=== PATIENT | female | born 1960 | race Caucasian/White ===

== ENCOUNTER 2020-08-24 11:28 | Outpatient (REF) | payer OTHER, SELFPAY ==
[2020-08-24 15:15] LABS: Alanine Aminotransferase 11 U/L (0-31); Albumin Level 4.3 g/dL (3.5-5.0); Alkaline Phosphatase 55 U/L (39-117); Anion Gap 12 (12-20); Aspartate Amino Transferase 16 U/L (5-31); Bilirubin Total 0.7 mg/dL (0.0-1.0); Blood Urea Nitrogen 18 mg/dL (9-16); Calcium 8.9 mg/dL (8.4-10.2); Carbon Dioxide 26 mmol/L (22-29); Chloride 107 mmol/L (96-108); Cholesterol 197 mg/dL; Estimated Glomerular Filt Rate > 60; Glucose Fasting 85 mg/dL (60-99); HDL Cholesterol 70 mg/dL; LDL Cholesterol Calculated 114 mg/dl; Potassium 4.4 mmol/L (3.3-5.1); Sodium 141 mmol/L (135-145); Total Protein 6.9 g/dL (6.5-8.0); Triglycerides 65 mg/dL
[2020-08-24 15:38] LABS: TSH reflex Free T4 2.06 uIU/mL (0.32-4.0); Vitamin D 25-OH Total 27.7 ng/mL (>30)
[2020-08-26 10:07] LABS: SARS COV2 IgG Negative (Negative)
== END 2020-08-24 11:29 | disposition home or self-care (01) ==
LOC: HO.HMGCLDS 11:28
PROVIDERS: PCP Nurse Practitioner Family; Visit Provider Nurse Practitioner Family
DX: Z00.00 Encounter for general adult medical examination without abnormal findings (principal); Z78.0 Asymptomatic menopausal state; Z20.822 Contact with and (suspected) exposure to COVID-19
CPT/HCPCS: 36415; 80053; 80061; 82306; 84443; 86769

== ENCOUNTER 2020-09-15 08:40 | Outpatient (REF) | payer OTHER, SELFPAY ==
--- NOTE | ~2020-09-15 | XR_ITS ---
EXAMINATION: XR BILATERAL HANDS CLINICAL INFORMATION: Bilateral hand pain. COMPARISON: None. TECHNIQUE: 3 views of each hand. FINDINGS: Views of the left hand do not demonstrate any evidence of acute fracture or dislocation. No significant soft tissue swelling is seen. No erosive changes are evident. There is degenerative joint space narrowing and spurring involving the 1st carpal metacarpal joint. Soft tissue calcification is seen about the volar medial aspect of the second proximal phalanx which is well corticated and may be sequela of previous trauma. There is no evidence of acute fracture or dislocation of the right hand. Joint spaces are maintained. No periarticular or para-articular erosive changes noted. There is mild spurring seen about the 1st metacarpophalangeal joint and 5th proximal interphalangeal joint. There is joint space narrowing with spurring and sclerosis about the 1st carpometacarpal joint. Calcific density about the medial aspect base of the 1st metacarpal may represent sequela of previous trauma/avulsion injury. XR/XR hand RT min 3V IMPRESSION: No acute fracture or dislocation of either right or left hands. No evidence of erosive arthropathy. Degenerative changes prominent involving both 1st carpometacarpal joints.
--- NOTE | ~2020-09-15 | XR_ITS ---
EXAMINATION: XR BILATERAL HANDS CLINICAL INFORMATION: Bilateral hand pain. COMPARISON: None. TECHNIQUE: 3 views of each hand. FINDINGS: Views of the left hand do not demonstrate any evidence of acute fracture or dislocation. No significant soft tissue swelling is seen. No erosive changes are evident. There is degenerative joint space narrowing and spurring involving the 1st carpal metacarpal joint. Soft tissue calcification is seen about the volar medial aspect of the second proximal phalanx which is well corticated and may be sequela of previous trauma. There is no evidence of acute fracture or dislocation of the right hand. Joint spaces are maintained. No periarticular or para-articular erosive changes noted. There is mild spurring seen about the 1st metacarpophalangeal joint and 5th proximal interphalangeal joint. There is joint space narrowing with spurring and sclerosis about the 1st carpometacarpal joint. Calcific density about the medial aspect base of the 1st metacarpal may represent sequela of previous trauma/avulsion injury. XR/XR hand LT min 3V IMPRESSION: No acute fracture or dislocation of either right or left hands. No evidence of erosive arthropathy. Degenerative changes prominent involving both 1st carpometacarpal joints.
== END 2020-09-15 08:41 | disposition home or self-care (01) ==
LOC: HO.HMGCX 08:40
PROVIDERS: PCP Nurse Practitioner Family; Visit Provider Nurse Practitioner Family
DX: M79.644 Pain in right finger(s) (principal); M79.645 Pain in left finger(s); M79.642 Pain in left hand; M79.641 Pain in right hand
CPT/HCPCS: 73130

== ENCOUNTER 2020-11-04 10:00 | Outpatient (RCR) | payer OTHER, SELFPAY ==
--- NOTE | 2020-10-06 10:03 | MHC.OT.OEV ---
[address] [phone] F: [phone] Occupational Therapy Evaluation Diagnosis: Bilateral hand pain Date of Onset: 07/12/20 Date of Surgery: Attending Provider: Prescribed Treatment: MD Follow Up Appointment: History of Current Condition: 09/15/20 x-ray B/L CMC arthritis. Significant Medical History: Precautions/Contraindications: Patient Goals: Hand Dominance: Right Observations: QuickDASH Score: 32 Prior Level of Function and Occupation Self Care, Employment, Leisure: Ind w/ daily activities, homemaker, owns a snack business Living Situation, Family and/or Social Support: Assists w/ care of granchildren (2 and 4) 2 days/week Current Level of Function and Occupation Self Care, Employment, Leisure: Pain w/ cutting/using kitchen knives, use of hands/fingers w/ small tasks Sleep: No issues Driving: No issues Vision: Balance: Pain Assessment Pain Score: 5 Pain Scale Used: Numeric (0 - 10) Pain Location and Description: Sharp pain radiating down thumb to base right > left Aggravating Factors: Use of hands w/ small tasks Alleviating Factors: None noted to this point Skin and Soft Tissue Assessment Skin and Soft Tissue: Comments: Nerve assessment Ulnar Nerve: WFL Median Nerve: WFL Radial Nerve: WFL Comments: Sensory Assessment Temperature: WFL Light Touch: WFL Proprioception: WFL Vibration: Comments: Edema Assessment Upper Extremity: Lower Extremity: Comments: Mild edema in both thumb bases Dexterity Assessment Dexterity: WFL Comments: Special Tests Comments: (+) grind test B/L'ly AROM(PROM) Strength Cervical Cervical Flexion: Cervical Extension: Cervical Lateral Flexion: Cervical Rotation: Comments: WFL Shoulder Flexion: Extension: Abduction: Internal Rotation: External Rotation: Comments: WFL Flexion: Extension: Abduction: Internal Rotation: External Rotation: Comments: Elbow Flexion: Extension: Pronation: Supination: Comments: WFL Flexion: Extension: Pronation: Supination: Comments: Wrist Flexion: Extension: Ulnar Deviation: Radial Deviation: Comments: WFL Flexion: Extension: Ulnar Deviation: Radial Deviation: Comments: Thumb Thumb CMC Flexion: Thumb MCP Flexion: Thumb IP Flexion: Radial Abduction: Palmar Abduction: [place] ([place] 0-10): B/L 10 Comments: Digits Index MCP: PIP: DIP: Long MCP: PIP: DIP: Ring MCP: PIP: DIP: Small MCP: PIP: DIP: Comments: 10 Gross Grasp: R 70lb L 75lb Lateral Pinch: R 15lb L 16lb Two-Point Pinch: R 6lb L 7lb Three-Jaw Wing: R 9lb L 11lb Comments: Patient Education Primary Language: [place] Route Service Manager Required: Yes Current Knowledge: Understands information with skills for self-management Teaching Method: Demonstration Handouts Verbal Education Needs Identified on Evaluation: ADL's Disease Information Equipment Use Exercise Pain Safety How did patient/family demonstrate learning? Patient demonstrates Patient verbalizes Barriers to Learning: None Readiness for Learning: Accepting Who was educated? Patient Comments: Plan of Care Assessment: 60 yo female presents w/ history of B/L CMC arthritis, worse during the winter time, but more persistant this year and has not had relief yet. On assessment, she demo's good strength and ROM, but had tenderness to palpate thumb bases w/ (+) grind test. She reports more pain w/ small tasks and object manipulation. She will benefit from brief course of occupational therapy for strengthening to support CMC w/ education on joint protection, activity modification, pain and edema management. STG Duration: 3 weeks Short Term Goals: Ind w/ CMC orthosis wear Pt to report decreased pain in both hands with moderate activities during the day Good follow through w/ activity modification/joint protection Ind w/ HEP LTG Duration: Custodial Goals: Same as above Frequency and Duration: The patient will be seen 2x/wk for 2-3 weeks Treatment Plan: Therapeutic Exercise Therapeutic Activity Home Exercise Program Splinting Patient Education Edema Control ADL Training Ultrasound Paraffin MHP Cold Packs Joint Mobilization Soft Tissue Mobilization Kinesiotaping Electronically Signed By: Yasmin Arrington OTR/L Reviewed/agree with student documentation: N/A Therapist: Please sign and return to therapist, Thank you for your referral.
--- NOTE | 2020-11-04 11:35 | MHC.OT.DC ---
[address] [phone] F: [phone] Occupational Therapy Discharge Note Provider: Manuel Zapien NP Diagnosis: Bilateral hand pain Date of Evaluation: 10/06/20 Date of Discharge: 11/04/20 Treatments to Date: 5 Discharge Status: Independent with HEP Discharge Summary: Aditi was referred to OT w/ persistant hand pain due to degenerative changes at bilateral CMCs, right worse than left. She is still w/ persistent pain despite limiting exercises, mostly pain w/ heavy housecleaning (putting sheets on bed). She wears custom orthosis from OT office at times with some relief, but is waiting shipment on Metagrip Push CMC orthoses. We have discussed joint protection and activity modification to great length and she has good understanding of home program. She would benefit from rheumtology consult to consider other options. Electronically Signed By: Yasmin Arrington, OTR/L Please Sign and return to therapist, thank you for your referral.
== END 2020-11-05 10:52 | disposition other institution (70) ==
LOC: HO.OT 10:00
PROVIDERS: PCP Nurse Practitioner Family; Visit Provider Nurse Practitioner Family
DX: M79.644 Pain in right finger(s) (principal); M79.645 Pain in left finger(s)
CPT/HCPCS: 29130; 97035; 97110; 97140; 97165; 97535; 97760

== ENCOUNTER 2021-08-24 08:51 | Outpatient (REF) | payer OTHER, SELFPAY ==
[2021-08-24 12:18] LABS: Alanine Aminotransferase 15 U/L (0-31); Albumin Level 4.4 g/dL (3.5-5.0); Alkaline Phosphatase 53 U/L (39-117); Anion Gap 14 (12-20); Aspartate Amino Transferase 18 U/L (5-31); Bilirubin Total 0.6 mg/dL (0.0-1.0); Blood Urea Nitrogen 17 mg/dL (9-16); Calcium 9.9 mg/dL (8.4-10.2); Carbon Dioxide 25 mmol/L (22-29); Chloride 105 mmol/L (96-108); Cholesterol 217 mg/dL; Estimated Glomerular Filt Rate > 60; Glucose Fasting 87 mg/dL (60-99); HDL Cholesterol 70 mg/dL; LDL Cholesterol Calculated 135 mg/dl; Potassium 4.4 mmol/L (3.3-5.1); Sodium 140 mmol/L (135-145); Total Protein 7.1 g/dL (6.5-8.0); Triglycerides 64 mg/dL
[2021-08-24 12:23] LABS: TSH reflex Free T4 2.16 uIU/mL (0.32-4.0); Vitamin D 25-OH Total 24.4 ng/mL (>30)
[2021-08-24 14:03] LABS: Appearance Urine HAZY; Color Urine YELLOW; Glucose Urine UA NEG (NEG); Leukocyte Esterase Urine NEG (NEG); Nitrite Urine NEG (NEG); Specific Gravity - Urine 1.025 (1.005-1.025); Urine Blood NEG (NEG); Urine Ketones 5 MG/DL (NEG); Urine Protein NEG (NEG-TRACE)
== END 2021-08-24 08:52 | disposition home or self-care (01) ==
LOC: HO.HMGCLDS 08:51
PROVIDERS: Visit Provider Nurse Practitioner Family
DX: Z00.00 Encounter for general adult medical examination without abnormal findings (principal); Z78.0 Asymptomatic menopausal state
CPT/HCPCS: 36415; 80053; 80061; 81003; 82306; 84443

== ENCOUNTER 2022-04-06 09:09 | Outpatient (REF) | payer OTHER, SELFPAY ==
[2022-04-06 11:12] LABS: MANUAL DIFF FLAG NO
[2022-04-06 11:15] LABS: Eosinophils Absolute Auto 0.1 X10*3/uL (0.0-0.4); Eosinophils Percent Auto 3.4 % (0-4); Hematocrit 40.2 % (37.0-47.0); Hemoglobin 13.5 g/dl (12.0-16.0); Imm Gran Abs Auto 0.01 X10*3/uL (0.00-0.03); Imm Gran Pct Auto 0.3 % (0.0-0.4); Lymphocytes Absolute Auto 0.9 X10*3/uL (1.2-4.9); Lymphocytes Percent Auto 24.4 % (20-40); Mean Corpuscular HGB Conc 33.6 g/dl (31.0-35.0); Mean Corpuscular Hemoglobin 31.5 pg (27.0-33.0); Mean Corpuscular Volume 93.9 fL (80.0-98.0); Mean Platelet Volume 10.4 fL (9.4-12.3); Monocytes Absolute Auto 0.4 X10*3/uL (0.1-1.2); Monocytes Percent Auto 10.5 % (2-11); Neutrophils Absolute Auto 2.3 x10*3/uL (2.0-8.3); Neutrophils Percent Auto 60.4 % (45-73); Platelet Count 279 X10*3/uL (160-400); Red Blood Count 4.28 X10*6/uL (4.20-5.50); Red Cell Distribution Width 14.4 % (11.0-16.0); White Blood Count 3.8 X10*3/uL (4.8-10.8)
[2022-04-06 11:58] LABS: TSH reflex Free T4 1.69 uIU/mL (0.32-4.0)
[2022-04-06 12:00] LABS: Alanine Aminotransferase 21 U/L (0-31); Albumin Level 4.4 g/dL (3.5-5.0); Alkaline Phosphatase 57 U/L (39-117); Anion Gap 15 (12-20); Aspartate Amino Transferase 18 U/L (5-31); Bilirubin Total 0.4 mg/dL (0.0-1.0); Blood Urea Nitrogen 29 mg/dL (9-16); Calcium 9.2 mg/dL (8.4-10.2); Carbon Dioxide 25 mmol/L (22-29); Chloride 106 mmol/L (96-108); Cholesterol 210 mg/dL; Estimated Glomerular Filt Rate > 60; Glucose Fasting 102 mg/dL (60-99); HDL Cholesterol 73 mg/dL; LDL Cholesterol Calculated 130 mg/dl; Potassium 4.8 mmol/L (3.3-5.1); Sodium 141 mmol/L (135-145); Total Protein 6.9 g/dL (6.5-8.0); Triglycerides 38 mg/dL
== END 2022-04-06 09:10 | disposition home or self-care (01) ==
LOC: HO.HMGCLDS 09:09
PROVIDERS: PCP Nurse Practitioner Family; Visit Provider Nurse Practitioner Family
DX: I10 Essential (primary) hypertension (principal); S00.262A Insect bite (nonvenomous) of left eyelid and periocular area, initial encounter; W57.XXXA Bitten or stung by nonvenomous insect and other nonvenomous arthropods, initial encounter
CPT/HCPCS: 36415; 80053; 80061; 84443; 85025

== ENCOUNTER 2022-04-06 14:49 | Outpatient (REF) | payer OTHER, SELFPAY ==
[2022-04-06 15:16] LABS: Appearance Urine Clear; Color Urine Yellow; Glucose Urine UA Negative (Negative); Leukocyte Esterase Urine Negative (Negative); Nitrite Urine Negative (Negative); PH 7.5 (5.0-9.0); Specific Gravity - Urine 1.025 (1.005-1.025); Urine Blood Negative (Negative); Urine Ketones Negative (Negative); Urine Protein Negative (Neg-Trace)
[2022-04-06 15:18] LABS: Bacteria Urine None Seen (None Seen); Hyaline Casts Urine 0-2 /LPF (0-2); RBC Urine 0-2 /HPF (0-2); Squamous Epithelial Cell Urine 0-2 /HPF (0-2); WBC Urine 0-5 /HPF (0-5)
== END 2022-04-06 14:50 | disposition home or self-care (01) ==
LOC: HO.LNP 14:49
PROVIDERS: Visit Provider Nurse Practitioner Family
DX: Z13.89 Encounter for screening for other disorder (principal)
CPT/HCPCS: 81001; 81003; 87086

== ENCOUNTER 2022-06-20 10:29 | Outpatient (REF) | payer OTHER, SELFPAY ==
[2022-06-20 14:11] LABS: MANUAL DIFF FLAG NO
[2022-06-20 14:25] LABS: Basophils Percent Auto 0.9 % (0-2); Eosinophils Absolute Auto 0.1 X10*3/uL (0.0-0.4); Eosinophils Percent Auto 3.3 % (0-4); Hemoglobin 13.4 g/dl (12.0-16.0); Imm Gran Abs Auto 0.01 X10*3/uL (0.00-0.03); Imm Gran Pct Auto 0.2 % (0.0-0.4); Lymphocytes Absolute Auto 1.4 X10*3/uL (1.2-4.9); Lymphocytes Percent Auto 31.8 % (20-40); Mean Corpuscular HGB Conc 32.7 g/dl (31.0-35.0); Mean Corpuscular Hemoglobin 30.9 pg (27.0-33.0); Mean Corpuscular Volume 94.7 fL (80.0-98.0); Mean Platelet Volume 10.5 fL (9.4-12.3); Monocytes Absolute Auto 0.4 X10*3/uL (0.1-1.2); Monocytes Percent Auto 8.4 % (2-11); Neutrophils Absolute Auto 2.4 x10*3/uL (2.0-8.3); Neutrophils Percent Auto 55.4 % (45-73); Platelet Count 309 X10*3/uL (160-400); Red Blood Count 4.33 X10*6/uL (4.20-5.50); Red Cell Distribution Width 14.2 % (11.0-16.0); White Blood Count 4.3 X10*3/uL (4.8-10.8)
== END 2022-06-20 10:30 | disposition home or self-care (01) ==
LOC: HO.HMGCLDS 10:29
PROVIDERS: PCP Nurse Practitioner Family; Visit Provider Nurse Practitioner Family
DX: D72.819 Decreased white blood cell count, unspecified (principal)
CPT/HCPCS: 36415; 85025

== ENCOUNTER 2022-10-20 08:04 | Outpatient (REF) | payer OTHER, SELFPAY ==
[2022-10-20 11:26] LABS: MANUAL DIFF FLAG NO
[2022-10-20 11:36] LABS: Basophils Percent Auto 0.6 % (0-2); Eosinophils Absolute Auto 0.1 X10*3/uL (0.0-0.4); Eosinophils Percent Auto 2.3 % (0-4); Hematocrit 40.6 % (37.0-47.0); Hemoglobin 13.3 g/dl (12.0-16.0); Lymphocytes Absolute Auto 1.2 X10*3/uL (1.2-4.9); Lymphocytes Percent Auto 34.7 % (20-40); Mean Corpuscular HGB Conc 32.8 g/dl (31.0-35.0); Mean Corpuscular Volume 94.6 fL (80.0-98.0); Mean Platelet Volume 10.2 fL (9.4-12.3); Monocytes Absolute Auto 0.3 X10*3/uL (0.1-1.2); Monocytes Percent Auto 9.3 % (2-11); Neutrophils Absolute Auto 1.8 x10*3/uL (2.0-8.3); Neutrophils Percent Auto 53.1 % (45-73); Platelet Count 288 X10*3/uL (160-400); Red Blood Count 4.29 X10*6/uL (4.20-5.50); Red Cell Distribution Width 14.3 % (11.0-16.0); White Blood Count 3.4 X10*3/uL (4.8-10.8)
[2022-10-20 12:15] LABS: Alanine Aminotransferase 15 U/L (0-31); Albumin Level 4.3 g/dL (3.5-5.0); Alkaline Phosphatase 60 U/L (39-117); Anion Gap 13 (12-20); Aspartate Amino Transferase 17 U/L (5-31); Bilirubin Total 0.9 mg/dL (0.0-1.0); Blood Urea Nitrogen 20 mg/dL (9-16); Calcium 9.6 mg/dL (8.4-10.2); Carbon Dioxide 27 mmol/L (22-29); Chloride 106 mmol/L (96-108); Cholesterol 194 mg/dL; Estimated Glomerular Filt Rate > 60; Glucose Fasting 90 mg/dL (60-99); HDL Cholesterol 62 mg/dL; LDL Cholesterol Calculated 118 mg/dl; Potassium 5.4 mmol/L (3.3-5.1); Sodium 141 mmol/L (135-145); TSH reflex Free T4 1.78 uIU/mL (0.32-4.0); Total Protein 6.8 g/dL (6.5-8.0); Triglycerides 72 mg/dL; Vitamin D 25-OH Total 43.9 ng/mL (>30)
== END 2022-10-20 08:05 | disposition home or self-care (01) ==
LOC: HO.HMGCLDS 08:04
PROVIDERS: PCP Nurse Practitioner Family; Visit Provider Nurse Practitioner Family
DX: Z00.00 Encounter for general adult medical examination without abnormal findings (principal); E55.9 Vitamin D deficiency, unspecified
CPT/HCPCS: 36415; 80053; 80061; 82306; 84443; 85025

== ENCOUNTER 2022-10-23 09:30 | Outpatient (REF) | payer OTHER, SELFPAY ==
[2022-10-23 11:27] LABS: Appearance Urine Clear; Color Urine Yellow; Glucose Urine UA Negative (Negative); Leukocyte Esterase Urine Negative (Negative); Nitrite Urine Negative (Negative); PH 5.5 (5.0-9.0); Specific Gravity - Urine 1.015 (1.005-1.025); Urine Blood Negative (Negative); Urine Ketones Negative (Negative); Urine Protein Negative (Neg-Trace)
[2022-10-23 12:05] LABS: Anion Gap 11 (12-20); Carbon Dioxide 28 mmol/L (22-29); Chloride 107 mmol/L (96-108); Potassium 5.5 mmol/L (3.3-5.1); Sodium 140 mmol/L (135-145)
== END 2022-10-23 09:31 | disposition home or self-care (01) ==
LOC: HO.HMGCLDS 09:30
PROVIDERS: PCP Nurse Practitioner Family; Visit Provider Nurse Practitioner Family
DX: I10 Essential (primary) hypertension (principal); E87.5 Hyperkalemia; S00.262A Insect bite (nonvenomous) of left eyelid and periocular area, initial encounter; W57.XXXA Bitten or stung by nonvenomous insect and other nonvenomous arthropods, initial encounter
CPT/HCPCS: 36415; 80051; 81003

== ENCOUNTER 2022-10-30 12:34 | Outpatient (REF) | payer OTHER, SELFPAY ==
[2022-10-30 14:37] LABS: Anion Gap 14 (12-20); Carbon Dioxide 23 mmol/L (22-29); Chloride 104 mmol/L (96-108); Potassium 4.6 mmol/L (3.3-5.1); Sodium 136 mmol/L (135-145)
== END 2022-10-30 12:35 | disposition home or self-care (01) ==
LOC: HO.HMGCLDS 12:34
PROVIDERS: PCP Nurse Practitioner Family; Visit Provider Nurse Practitioner Family
DX: E87.5 Hyperkalemia (principal)
CPT/HCPCS: 36415; 80051

== ENCOUNTER → 2022-11-10 13:15 | Outpatient (BNV) | payer OTHER, SELFPAY | PROVIDERS: PCP Nurse Practitioner Family; Visit Provider Internal Medicine Medical Oncology | DX: D72.819 Decreased white blood cell count, unspecified (principal) | CPT/HCPCS: 99204; 99213 ==

== ENCOUNTER 2023-04-16 13:05 | Outpatient (AMB) | payer OTHER, SELFPAY ==
--- NOTE | 2023-04-16 13:08 | A.OFFPC_ITS ---
Vital Signs 04/16/23 13:11 Height 5 ft 9 in Weight 172 lb BMI 25.4 BP 122/80 Blood Pressure Location Rt brachial Position Sitting Pulse 51 Pulse Source Pulse Oximeter Pulse Oximetry (%) 98 Oxygen Delivery Method Room Air Intake Visit Reasons: 6 MON FUP/NEEDS PHQ9+THRIVE Allergies Lisinopril-Hydrochlorothiazide Adverse Reaction (Unknown, Uncoded 04/16/23 14:04) cough Medication List - Last Reconciled 04/16/23 by BERNIE Guadarrama epinephrine (EpiPen 2-Pete) 0.3 mg (0.3 mL) IM Q4H PRN losartan 50 mg PO DAILY Tobacco use date assessed: 10/16/22 Dental Screening Dental Screen Date: 04/16/23 Did you have a dental visit in the last 12 months?: Yes Did you have a dental problem in the last 6 months where you did not have access to dental care?: No Was dental information given to patient?: Patient has dentist HPI 6 MON FUP/NEEDS PHQ9+THRIVE HPI Details Pt c/o intermittent chest discomfort. She reports that the pain does not radiate anywhere and is very sporadic. Pt reports that this feels more muscu lar Will do an EKG in office. Denies any current chest pain, shortness of breath, and dizziness. Pt also c/o left scapular pain. Recommended home exercises and stretching routine. [facility] Medical History (Updated 04/16/23 @ 13:35 by BERNIE Guadarrama) Sinusitis Leukopenia Osteoarthritis CMC arthritis, thumb, degenerative H/O cardiac murmur Family History Father Prostate cancer Mother No problems noted. Paternal Grandmother Leukemia Social History Household Members: Significant Other Housing: House Alcohol intake: current Patient Tobacco Use Status: Never used Tobacco (40 years ) Years Smoked: 5 years e-Cigarette/Vaping Use: Never Used Second Hand Smoke Exposure: No service: No Current occupational status: employed and unemployed Cognitive needs: No Hearing needs: No Vision needs: No Questionnaire PHQ-9 Over the last 2 weeks, how often have you been bothered by any of the following problems? 1. Little interest or pleasure in doing things: not at all 2. Feeling down, depressed, or hopeless: not at all 3. Trouble falling or staying asleep, or sleeping too much: several days 4. Feeling tired or having little energy: not at all 5. Poor appetite or overeating: not at all 6. Feeling bad about yourself - or that you are a failure or have let yourself or your family down: not at all 7. Trouble concentrating on things, such as reading the newspaper or watching television: not at all 8. Moving or speaking so slowly that other people could have noticed. Or the opposite - being so fidgety or restless that you have been moving around a lot more than usual: not at all 9. Thoughts that you would be better off or of hurting yourself in some way: not at all Total score: 1 Depression Screening Interpretation: Negative Depression Screening Done: Yes 43533 - PHQ-9 Billing: Yes Source: Developed by Drs. Jonathan Okeefe, Ai Joseph, Kun Fox and colleagues, with an educational carrie from [employer]. Thrive Questionnaire Date Thrive assessed: 02/01/22 Currently or been in a relationship where the following occur: no concerns reported PHILLIP-7 AMB Questionnaire PHILLIP-7 Date PHILLIP - 7 assessed: 04/16/23 Source: Developed by Drs. Jonathan Okeefe, Kun Vick and colleagues, with an educational carrie from [employer]. Review of Systems Const Reports as per HPI Physical exam (Primary Care) Vital Signs: Last Vital Signs Pulse 51 04/16/23 13:11 BP 122/80 04/16/23 13:11 Pulse Ox 98 04/16/23 13:11 Oxygen Delivery Method Room Air 04/16/23 13:11 BMI result Body Mass Index 25.4 Tobacco/Smoking Status: Tobacco use Status Tobacco use date assessed 10/16/22 04/16/23 13:10 Patient Tobacco Use Status Never used Tobacco (40 years 04/16/23 13:10 ) e-Cigarette/Vaping Use Never Used 04/16/23 13:10 PHQ-9: PHQ-9 Score PHQ-9: Total score 1 04/16/23 14:13 Depression Screening Interpretation: Negative Thrive Assessment: Date of Thrive Assessment Date Thrive assessed 02/01/22 04/16/23 13:10 Currently or been in a relationship where the following occur: no concerns reported Const General: cooperative Orientation/consciousness: patient oriented x3 Resp Effort & Inspection: normal respiratory effort Auscultation: clear to auscultation bilaterally Cardio Other: slight systolic murmur Rate: regular rate Rhythm: regular rhythm Heart sounds: S1 normal heart sound present and S2 normal heart sound present Neuro General: patient oriented x3 Psych Appearance: grossly normal Mental Status: mental status grossly normal Speech and movement: Normal speech and movement present Affect: normal affect Attitude: cooperative Thought process: Normal thought process present Thought content: Normal thought content present Insight: Good insight present (Psych) Judgement: Good judgement present (Psych) Office Procedures Flu Questionnaire Does the patient have a severe egg allergy?: No Does the patient have severe life threatening allergies?: No Does the patient have a fever or illness today?: No Has the patient ever had Guillain-[place] Syndrome?: No Has the patient ever had any past reaction to a flu shot?: No Immunizations flu vacc [id number] 6mos up(PF) 60 mcg(15 mcgx4)/0.5 mL IM syringe Performing Provider: BERNIE Guadarrama [facility] Administered by: WYATT Pierson on 04/16/23 14:13 Dose Route Admin Location Dispensed Lot Number Expiration Date NDC Certified Prosthetist Vice President 0.5 mL IM Right Deltoid 0.5 mL [id number] 12/09/23 [id number] [facility] V[facility] Given Date VIS Provided VIS Publication Date 04/16/23 Single Vaccine 21 Eligibility Eligibility Date Funding Source Not [facility] Eligible 04/16/23 Private Assessment and Plan Assessment & Plan (1) Chest pain: Code(s): R07.9 - Chest pain, unspecified Plan: EKG done in office (2) Pain of left scapula: Code(s): M89.8X1 - Other specified disorders of bone, shoulder Plan: Recommended home exercises and stretching routine (3) Physical exam: Code(s): Z00.00 - Encounter for general adult medical examination without abnormal findings (4) Vitamin D deficiency: Code(s): E55.9 - Vitamin D deficiency, unspecified Plan The patient agreed to the use of a director medical for this encounter. Scribed for KELLY Bass- by Zaynab Martínez, director medical, on 04/16/2023 at 13:20 EST. Orders: Orders UA CC w/rflx Micro + Cult Today Z00.00 - Encounter for general adult medical examination without abnormal findings Lipid Panel Today Z00.00 - Encounter for general adult medical examination without abnormal findings AMB EKG-In Office Today R07.9 - Chest pain, unspecified Complete Blood Count Auto Diff Today Z00.00 - Encounter for general adult medical examination without abnormal findings Comprehensive [place]. Panel Fast Today Z00.00 - Encounter for general adult medical examination without abnormal findings TSH reflex Free T4 Today Z00.00 - Encounter for general adult medical examination without abnormal findings Vitamin D 25-OH Total Today E55.9 - Vitamin D deficiency, unspecified Influenza [id number] Immunization Today Z23 - Encounter for immunization Coding Level of Care Code Est Pt Level 3 (48570) Diagnoses Chest pain R07.9 Pain of left scapula M89.8X1 Physical exam Z00.00 Vitamin D deficiency E55.9
[2023-04-16 13:11] VITALS: BP 122/80; PULSE 51; O2SAT 98; BMI 25.4
== END 2023-04-16 14:31 | disposition home or self-care (01) ==
PROVIDERS: Visit Provider Nurse Practitioner Family
DX: R07.9 Chest pain, unspecified (principal); M89.8X1 Other specified disorders of bone, shoulder; E55.9 Vitamin D deficiency, unspecified; Z23 Encounter for immunization
CPT/HCPCS: 90471; 90686; 93000; 99213

== ENCOUNTER 2023-06-16 08:27 | Outpatient (REF) | payer OTHER, SELFPAY | END 2023-06-16 08:28 | disposition home or self-care (01) | LOC: HO.HMGCLDS 08:27 | PROVIDERS: PCP Nurse Practitioner Family; Visit Provider Nurse Practitioner Family | DX: Z00.00 Encounter for general adult medical examination without abnormal findings (principal); E55.9 Vitamin D deficiency, unspecified | CPT/HCPCS: 36415; 80053; 80061; 82306; 84443; 85025 ==

== ENCOUNTER 2023-07-09 11:45 | Outpatient (AMB) | payer OTHER, SELFPAY ==
--- NOTE | 2023-07-09 13:45 | AM.OFFWIN_ITS ---
Intake Vital Signs 07/09/23 13:46 Height 5 ft 9 in Weight 182 lb BMI 26.9 BP 142/90 H Blood Pressure Location Lt brachial Position Sitting Pulse 66 Pulse Source Pulse Oximeter Temp 97.3 F Temp Source Temporal Artery Scan Pulse Oximetry (%) 97 Oxygen Delivery Method Room Air Intake Visit Reasons: EP LT ear pain/Sinus [phone] Intake Note: ptis here today for lft ear pain sinus started 1 week ago Patient Tobacco Use Status: Never used Tobacco (40 years ) Allergies Lisinopril-Hydrochlorothiazide Adverse Reaction (Unknown, Uncoded 07/09/23 14:18) cough Medication List - Last Reconciled 07/09/23 by Tan Reese MD epinephrine (EpiPen 2-Pete) 0.3 mg (0.3 mL) IM Q4H PRN losartan 50 mg PO DAILY Do you need a note to return to daycare/school/sports/work: No HPI EP LT ear pain/Sinus [phone] HPI Details 63-year-old female presents to [facility] for a sick [facility]. Beginning of the year, she had a sinus infection and was treated with amoxicillin. She later developed COVID infection and now has an irritating nonproductive cough. Her ears feel congested. No nausea or vomiting. [facility] Medical History (Updated 04/16/23 @ 13:35 by KELLY Guadarrama-CURTIS) Sinusitis Leukopenia Osteoarthritis CMC arthritis, thumb, degenerative H/O cardiac murmur Family History Father Prostate cancer Mother No problems noted. Paternal Grandmother Leukemia Social History Household Members: Significant Other Housing: House Alcohol intake: current Patient Tobacco Use Status: Never used Tobacco (40 years ) Years Smoked: 5 years e-Cigarette/Vaping Use: Never Used Second Hand Smoke Exposure: No service: No Current occupational status: employed and unemployed Cognitive needs: No Hearing needs: No Vision needs: No Physical Exam Vital Signs: Last Vital Signs Temp 97.3 F 07/09/23 13:46 Pulse 66 07/09/23 13:46 BP 142/90 H 07/09/23 13:46 Pulse Ox 97 07/09/23 13:46 Oxygen Delivery Method Room Air 07/09/23 13:46 BMI result Body Mass Index 26.9 Const General: cooperative and healthy appearing Nutritional Appearance: well nourished Orientation/consciousness: patient oriented x3 Limitations: no limitations HEENT Head: Yes normal to inspection Eyes General: appearance normal, both eyes and all related structures Neck Neck: Yes normal visual inspection Chest Chest palpation & inspection: normal palpation of entire chest wall Resp Effort & Inspection: normal respiratory effort Neuro General: patient oriented x3 Assessment & Plan Assessment & Plan (1) Acute maxillary sinusitis: Code(s): J01.00 - Acute maxillary sinusitis, unspecified Plan: Azithromycin and prednisone called in. If sx not better, to follow up here Coding Level of Care Code Est Pt Level 3 (06004) Diagnoses Acute maxillary sinusitis J01.00
[2023-07-09 13:46] VITALS: BP 142/90; PULSE 66; TEMP 36.3; O2SAT 97; BMI 26.9
== END 2023-07-09 14:53 | disposition home or self-care (01) ==
PROVIDERS: PCP Nurse Practitioner Family; Visit Provider Internal Medicine
DX: J01.00 Acute maxillary sinusitis, unspecified (principal)
CPT/HCPCS: 99213

== ENCOUNTER 2023-11-07 16:21 | Outpatient (AMB) | payer OTHER, SELFPAY ==
[2023-11-07 16:23] VITALS: BP 120/72; PULSE 60; O2SAT 98; BMI 25.8
--- NOTE | 2023-11-07 16:23 | MHC.PC.OV ---
Vital Signs 11/07/23 16:23 Height 5 ft 9 in Weight 175 lb BMI 25.8 BP 120/72 Blood Pressure Location Lt brachial Position Sitting Pulse 60 Pulse Source Pulse Oximeter Pulse Oximetry (%) 98 Oxygen Delivery Method Room Air Intake Visit Reasons: Annual PE- NEEDS PHQ9 +THRIVE Gas Leak Inspector: Not Required per policy Accompanied by: Self / Same As Patient Allergies Lisinopril-Hydrochlorothiazide Adverse Reaction (Unknown, Uncoded 11/07/23 16:24) cough Tobacco use date assessed: 11/07/23 Dental Screening Dental Screen Date: 11/07/23 Did you have a dental visit in the last 12 months?: Yes Did you have a dental problem in the last 6 months where you did not have access to dental care?: No Was dental information given to patient?: Patient has dentist HPI Annual PE- NEEDS PHQ9 +THRIVE HPI Details Pt is here for a PE. Will order labs. Cologuard is up to date. Mammo is up to date according to pt. Has a contract paralegal. Pt c/o fatigue. She does not snore. Will order labs. [facility] Medical History Sinusitis Leukopenia Osteoarthritis CMC arthritis, thumb, degenerative H/O cardiac murmur Family History Father Prostate cancer Mother No problems noted. Paternal Grandmother Leukemia Social History Household Members: Significant Other Housing: House Alcohol intake: current Patient Tobacco Use Status: Never used Tobacco (40 years ) Years Smoked: 5 years e-Cigarette/Vaping Use: Never Used Second Hand Smoke Exposure: No service: No Current occupational status: unemployed Cognitive needs: No Hearing needs: No Vision needs: No Questionnaire PHQ-9 Over the last 2 weeks, how often have you been bothered by any of the following problems? 1. Little interest or pleasure in doing things: not at all 2. Feeling down, depressed, or hopeless: not at all 3. Trouble falling or staying asleep, or sleeping too much: not at all 4. Feeling tired or having little energy: not at all 5. Poor appetite or overeating: not at all 6. Feeling bad about yourself - or that you are a failure or have let yourself or your family down: not at all 7. Trouble concentrating on things, such as reading the newspaper or watching television: not at all 8. Moving or speaking so slowly that other people could have noticed. Or the opposite - being so fidgety or restless that you have been moving around a lot more than usual: not at all 9. Thoughts that you would be better off or of hurting yourself in some way: not at all Total score: 0 Depression Screening Interpretation: Negative Depression Screening Done: Yes 22431 - PHQ-9 Billing: Yes Source: Developed by Drs. Jonathan Okeefe, Ai Joseph, Kun Fox and colleagues, with an educational carrie from [employer]. Thrive Questionnaire Date Thrive assessed: 11/07/23 I am a: Patient What is your living situation today?: I have a steady place to live Within the past 12 months, did the food you bought not last and you didn't have the money to get more?: Never true Within the past 12 months, did you worry whether your food would run out before you got money to buy more?: Never true Do you have trouble paying for medicines?: No Do you have trouble getting transportation to medical appointments?: No Do you have trouble paying your heating and electricity bill?: No Do you have trouble taking care of your child, family member or friend?: No Do you have trouble with day-to-day activities such as bathing, preparing meals, shopping, managing finances, etc.?: No Are you currently unemployed and looking for a job?: No Are you interested in more education?: No Please select the resources that you would like help with: None Currently or been in a relationship where the following occur: no concerns reported THRIVE Score: 0 AUDIT C Alcohol Use Questionnaire (AUDIT-C) 1. How often do you have a drink containing alcohol?: 2-3 times a week 2. How many drinks containing alcohol do you have on a typical day when you are drinking?: 1 or 2 3. How often do you have six or more drinks on one occasion?: Never Total Score: 3 Score Reviewed/Action Taken: Yes PHILLIP-7 AMB Questionnaire PHILLIP-7 Date PHILLIP - 7 assessed: 11/07/23 Feeling nervous, anxious, or on edge: 0 = Not at all Not being able to stop or control worryin = Not at all Worrying too much about different things: 0 = Not at all Trouble relaxin = Not at all Being so restless that it is hard to sit still: 0 = Not at all Becoming easily annoyed or irritable: 0 = Not at all Feeling afraid as if something awful might happen: 0 = Not at all Total PHILLIP-7 score (0-4 normal; 5-9 mild; 10-14 moderate; 15-21 severe): 0 Source: Developed by Drs. Jonathan Okeefe, Ai Joseph, Kun Fox and colleagues, with an educational carrie from [employer]. PHILLIP-7 Assessment Billing PHILLIP-7 Assessment Tool: PHILLIP-7 Assessment 91542 Review of Systems Const Denies chills and Denies fever(s) Eyes Denies blurry vision ENT Denies vertigo, Denies dizziness and Denies sore throat Card Denies chest pain at rest, Denies chest pain with activity, Denies diaphoresis, Denies dyspnea and Denies dyspnea on exertion Resp Denies cough, Denies dyspnea, Denies dyspnea on exertion and Denies wheezing GI Denies abdominal pain, Denies melena, Denies hematochezia, Denies constipation, Denies diarrhea and Denies loose stools Denies hematuria Musc Denies numbness and Denies tingling Skin/Breast Denies lesions Neuro Denies vertigo, Denies dizziness, Denies numbness and Denies tingling Psych Denies anxiety, Denies depression, Denies homicidal ideation, Denies suicidal ideation and Denies other (substance abuse) Aller/Immun Denies wheezing Physical exam (Primary Care) Vital Signs: Last Vital Signs Pulse 60 11/07/23 16:23 BP 120/72 11/07/23 16:23 Pulse Ox 98 11/07/23 16:23 Oxygen Delivery Method Room Air 11/07/23 16:23 BMI result Body Mass Index 25.8 Tobacco/Smoking Status: Tobacco use Status Tobacco use date assessed 11/07/23 11/07/23 16:25 Patient Tobacco Use Status Never used Tobacco (40 years 11/07/23 16:25 ) e-Cigarette/Vaping Use Never Used 11/07/23 16:25 PHQ-9: PHQ-9 Score PHQ-9: Total score 0 11/07/23 16:47 Depression Screening Interpretation: Negative Thrive Assessment: Date of Thrive Assessment Date Thrive assessed 11/07/23 11/07/23 16:25 Currently or been in a relationship where the following occur: no concerns reported Const General: cooperative Nutritional Appearance: well nourished Orientation/consciousness: patient oriented x3 HENMT Head: Yes normal to inspection, Yes normocephalic and Yes atraumatic Ears: TM's normal bilaterally Eyes General: appearance normal, both eyes and all related structures Alignment and Position: alignment normal and position normal Neck Neck: Yes normal visual inspection and Yes no lymphadenopathy Thyroid: Thyroid normal Resp Effort & Inspection: normal respiratory effort Auscultation: clear to auscultation bilaterally Cardio Rate: regular rate Rhythm: regular rhythm Heart sounds: S1 normal heart sound present, S2 normal heart sound present and no murmurs GI Palpation (GI): Soft to palpation and nontender Auscultation: normal bowel sounds Skin Rashes: no rashes Neuro General: patient oriented x3, moves all extremities, no focal motor deficits and deep tendon reflexes 2+ bilaterally Romberg Test: Negative Psych Appearance: grossly normal Mental Status: mental status grossly normal Speech and movement: Normal speech and movement present Affect: normal affect Attitude: cooperative Thought process: Normal thought process present Thought content: Normal thought content present Insight: Good insight present (Psych) Judgement: Good judgement present (Psych) Assessment and Plan Assessment & Plan (1) Physical exam: Code(s): Z00.00 - Encounter for general adult medical examination without abnormal findings Plan: Labs ordered (2) Vitamin D deficiency: Code(s): E55.9 - Vitamin D deficiency, unspecified Plan: Labs ordered (3) Fatigue: Code(s): R53.83 - Other fatigue Plan: Labs ordered Plan The patient agreed to the use of a medical receptionist medical assistant for this encounter. Scribed for BERNIE Bass by Zaynab Martínez medical receptionist medical assistant, on 11/07/2023 at 16:40 EST. Orders: Orders Complete Blood Count Auto Diff Today Z00.00 - Encounter for general adult medical examination without abnormal findings TSH reflex Free T4 Today Z00.00 - Encounter for general adult medical examination without abnormal findings UA CC w/rflx Micro + Cult Today Z00.00 - Encounter for general adult medical examination without abnormal findings Ferritin Today R53.83 - Other fatigue IRON PROFILE Today R53.83 - Other fatigue Vitamin B12 and Folate Today R53.83 - Other fatigue Comprehensive Guild. Panel Fast Today Z00.00 - Encounter for general adult medical examination without abnormal findings Lipid Panel Today Z00.00 - Encounter for general adult medical examination without abnormal findings Vitamin D 25-OH Total Today E55.9 - Vitamin D deficiency, unspecified Medications: Refilled losartan 50 mg PO DAILY 90 tabs 1RF epinephrine (EpiPen 2-Pete) 0.3 mg (0.3 mL) IM Q4H PRN 2 ea 2RF anaphylaxis Discontinued azithromycin Discontinued Reason: Doctor's Order take 500 mg today (day 1), then 250 mg for 4 days (days 2-5) PO 6 tabs 0RF prednisone Discontinued Reason: Doctor's Order 60 mg (3 x 20 mg) PO DAILY 9 tabs 0RF Coding Level of Care Code Est Pt Prev Care 40-64y(18944) Diagnoses Physical exam Z00.00 Vitamin D deficiency E55.9 Fatigue R53.83 Additional Codes PHILLIP-7 Assessment Billing - PHILLIP-7 Assessment Tool: PHILLIP-7 Assessment 29018 ([id number])
== END 2023-11-07 17:06 | disposition home or self-care (01) ==
PROVIDERS: Visit Provider Nurse Practitioner Family
DX: Z00.00 Encounter for general adult medical examination without abnormal findings (principal); E55.9 Vitamin D deficiency, unspecified; R53.83 Other fatigue
CPT/HCPCS: 99396

== ENCOUNTER 2023-11-12 09:18 | Outpatient (REF) | payer OTHER, SELFPAY ==
[2023-11-12 10:19] LABS: MANUAL DIFF FLAG NO
[2023-11-12 10:41] LABS: Basophils Percent Auto 0.8 % (0-2); Eosinophils Absolute Auto 0.1 X10*3/uL (0.0-0.4); Eosinophils Percent Auto 3.8 % (0-4); Hematocrit 40.7 % (37.0-47.0); Hemoglobin 13.5 g/dl (12.0-16.0); Imm Gran Abs Auto 0.01 X10*3/uL (0.00-0.03); Imm Gran Pct Auto 0.3 % (0.0-0.4); Lymphocytes Absolute Auto 1.3 X10*3/uL (1.2-4.9); Lymphocytes Percent Auto 36.8 % (20-40); Mean Corpuscular HGB Conc 33.2 g/dl (31.0-35.0); Mean Corpuscular Hemoglobin 31.3 pg (27.0-33.0); Mean Corpuscular Volume 94.2 fL (80.0-98.0); Mean Platelet Volume 10.2 fL (9.4-12.3); Monocytes Absolute Auto 0.4 X10*3/uL (0.1-1.2); Monocytes Percent Auto 9.6 % (2-11); Neutrophils Absolute Auto 1.8 x10*3/uL (2.0-8.3); Neutrophils Percent Auto 48.7 % (45-73); Platelet Count 275 X10*3/uL (160-400); Red Blood Count 4.32 X10*6/uL (4.20-5.50); Red Cell Distribution Width 14.5 % (11.0-16.0); White Blood Count 3.6 X10*3/uL (4.8-10.8)
[2023-11-12 11:22] LABS: Alanine Aminotransferase 14 U/L (0-31); Albumin Level 4.3 g/dL (3.5-5.0); Alkaline Phosphatase 62 U/L (39-117); Anion Gap 13 (12-20); Aspartate Amino Transferase 17 U/L (5-31); Bilirubin Total 0.7 mg/dL (0.0-1.0); Blood Urea Nitrogen 14 mg/dL (9-16); Calcium 9.7 mg/dL (8.4-10.2); Carbon Dioxide 27 mmol/L (22-29); Chloride 106 mmol/L (96-108); Cholesterol 189 mg/dL (<200); Estimated Glomerular Filt Rate > 60; Glucose Fasting 99 mg/dL (60-99); HDL Cholesterol 66 mg/dL (>40); Iron 172 mcg/dL (30-160); LDL Cholesterol Calculated 104 mg/dL (<100); Percent Iron Saturation 61 % (15-50); Potassium 4.5 mmol/L (3.3-5.1); Sodium 141 mmol/L (135-145); Total Iron Binding Capacity 281 mcg/dL (228-428); Triglycerides 97 mg/dL (<150); Unsaturated Iron Binding 109 ug/dL
[2023-11-12 11:28] LABS: Ferritin 100 ng/mL (10-250); TSH reflex Free T4 1.28 uIU/mL (0.32-4.0); Vitamin D 25-OH Total 42.5 ng/mL (>30)
[2023-11-12 11:49] LABS: Vitamin B12 703 pg/mL (200-900)
== END 2023-11-12 09:19 | disposition home or self-care (01) ==
LOC: HO.HMGCLDS 09:18
PROVIDERS: PCP Nurse Practitioner Family; Visit Provider Nurse Practitioner Family
DX: Z00.00 Encounter for general adult medical examination without abnormal findings (principal); R53.83 Other fatigue; E55.9 Vitamin D deficiency, unspecified
CPT/HCPCS: 36415; 80053; 80061; 82306; 82607; 82728; 82746; 83540; 84443; 85025

== ENCOUNTER 2024-01-23 15:45 | Outpatient (AMB) | payer OTHER, SELFPAY ==
--- NOTE | 2024-01-23 15:50 | MHC.PC.OV ---
Vital Signs 01/23/24 15:51 Height 5 ft 9 in Weight 144 lb BMI 21.3 BP 126/78 Blood Pressure Location Rt brachial Position Sitting Pulse 76 Pulse Source Pulse Oximeter Pulse Oximetry (%) 97 Oxygen Delivery Method Room Air Intake Visit Reasons: Followup fatigue Intake Note: pt is here for follow regarding fatigue Tip Puncher Required: No Accompanied by: Self / Same As Patient Allergies Lisinopril-Hydrochlorothiazide Adverse Reaction (Unknown, Uncoded 01/23/24 15:51) cough Tobacco use date assessed: 11/07/23 Dental Screening Dental Screen Date: 11/07/23 HPI Followup fatigue HPI Details Pt reports ongoing fatigue. She has had labs drawn, see results. Pt has seen hematology for leukopenia. She has not had a sleep study, will refer for this. Pt reports mind racing at night that makes it difficult for her to sleep. She will try trazodone for this (25mg). Pt's iron was elevated previously. She is not taking iron supplements. Hemochromatosis panel has been ordered. Denies fever, chills, and dizziness. [facility] Medical History Sinusitis Leukopenia Osteoarthritis CMC arthritis, thumb, degenerative H/O cardiac murmur Family History Father Prostate cancer Mother No problems noted. Paternal Grandmother Leukemia Social History Household Members: Significant Other Housing: House Alcohol intake: current Patient Tobacco Use Status: Never used Tobacco (40 years ) Years Smoked: 5 years e-Cigarette/Vaping Use: Never Used Second Hand Smoke Exposure: No service: No Current occupational status: unemployed Cognitive needs: No Hearing needs: No Vision needs: No Questionnaire PHQ-9 Over the last 2 weeks, how often have you been bothered by any of the following problems? 1. Little interest or pleasure in doing things: not at all 2. Feeling down, depressed, or hopeless: not at all 3. Trouble falling or staying asleep, or sleeping too much: several days 4. Feeling tired or having little energy: several days 5. Poor appetite or overeating: not at all 6. Feeling bad about yourself - or that you are a failure or have let yourself or your family down: not at all 7. Trouble concentrating on things, such as reading the newspaper or watching television: not at all 8. Moving or speaking so slowly that other people could have noticed. Or the opposite - being so fidgety or restless that you have been moving around a lot more than usual: not at all 9. Thoughts that you would be better off or of hurting yourself in some way: not at all Total score: 2 Depression Screening Interpretation: Negative Depression Screening Done: Yes 90782 - PHQ-9 Billing: Yes Source: Developed by Drs. Jonathan Okeefe, Ai Joseph, Kun Fox and colleagues, with an educational carrie from [employer]. Thrive Questionnaire Date Thrive assessed: 01/23/24 I am a: Patient What is your living situation today?: I have a steady place to live Within the past 12 months, did the food you bought not last and you didn't have the money to get more?: Never true Within the past 12 months, did you worry whether your food would run out before you got money to buy more?: Never true Do you have trouble paying for medicines?: No Do you have trouble getting transportation to medical appointments?: No Do you have trouble paying your heating and electricity bill?: No Do you have trouble taking care of your child, family member or friend?: No Do you have trouble with day-to-day activities such as bathing, preparing meals, shopping, managing finances, etc.?: No Are you currently unemployed and looking for a job?: No Are you interested in more education?: No Please select the resources that you would like help with: None Currently or been in a relationship where the following occur: No concerns reported THRIVE Score: 0 AUDIT C Alcohol Use Questionnaire (AUDIT-C) 1. How often do you have a drink containing alcohol?: 2-4 times a month 2. How many drinks containing alcohol do you have on a typical day when you are drinking?: 1 or 2 3. How often do you have six or more drinks on one occasion?: Never Total Score: 2 Score Reviewed/Action Taken: Yes PHILLIP-7 AMB Questionnaire PHILLIP-7 Date PHILLIP - 7 assessed: 01/23/24 Feeling nervous, anxious, or on edge: 0 = Not at all Not being able to stop or control worryin = Not at all Worrying too much about different things: 0 = Not at all Trouble relaxin = Not at all Being so restless that it is hard to sit still: 0 = Not at all Becoming easily annoyed or irritable: 0 = Not at all Feeling afraid as if something awful might happen: 0 = Not at all Total PHILLIP-7 score (0-4 normal; 5-9 mild; 10-14 moderate; 15-21 severe): 0 Source: Developed by Drs. Jonathan Okeefe, Ai Joseph, Kun Fox and colleagues, with an educational carrie from [employer]. PHILLIP-7 Assessment Billing PHILLIP-7 Assessment Tool: PHILLIP-7 Assessment 94554 Review of Systems Const Reports as per HPI Physical exam (Primary Care) Vital Signs: Last Vital Signs Pulse 76 01/23/24 15:51 BP 126/78 01/23/24 15:51 Pulse Ox 97 01/23/24 15:51 Oxygen Delivery Method Room Air 01/23/24 15:51 BMI result Body Mass Index 21.3 Tobacco/Smoking Status: Tobacco use Status Tobacco use date assessed 11/07/23 01/23/24 15:52 Patient Tobacco Use Status Never used Tobacco (40 years 01/23/24 15:52 ) e-Cigarette/Vaping Use Never Used 01/23/24 15:52 PHQ-9: PHQ-9 Score PHQ-9: Total score 2 01/23/24 16:22 Depression Screening Interpretation: Negative Thrive Assessment: Date of Thrive Assessment Date Thrive assessed 01/23/24 01/23/24 15:52 Currently or been in a relationship where the following occur: No concerns reported Const General: cooperative Orientation/consciousness: patient oriented x3 Resp Effort & Inspection: normal respiratory effort Auscultation: clear to auscultation bilaterally Cardio Rate: regular rate Rhythm: regular rhythm Heart sounds: S1 normal heart sound present and S2 normal heart sound present Neuro General: patient oriented x3 Psych Appearance: grossly normal Mental Status: mental status grossly normal Speech and movement: Normal speech and movement present Affect: normal affect Attitude: cooperative Thought process: Normal thought process present Thought content: Normal thought content present Insight: Good insight present (Psych) Judgement: Good judgement present (Psych) Assessment and Plan Assessment & Plan (1) Fatigue: Code(s): R53.83 - Other fatigue Plan: Referred for sleep study, labs ordered Plan The patient agreed to the use of a medical coding specialist for this encounter. Scribed for KELLY Bass-CURTIS by Zaynab Martínez medical coding specialist, on 01/23/2024 at 16:10 EST. Orders: Orders Comprehensive Met. Panel Today R53.83 - Other fatigue Complete Blood Count Auto Diff Today R53.83 - Other fatigue Referrals Sleep Medicine Referral R53.83 - Other fatigue Coding Level of Care Code Est Pt Level 3 (56030) Diagnoses Fatigue R53.83 Additional Codes PHILLIP-7 Assessment Billing - PHILLIP-7 Assessment Tool: PHILLIP-7 Assessment 20032 ([id number])
[2024-01-23 15:51] VITALS: BP 126/78; PULSE 76; O2SAT 97; BMI 21.3
== END 2024-01-23 16:31 | disposition home or self-care (01) ==
PROVIDERS: PCP Nurse Practitioner Family; Visit Provider Nurse Practitioner Family
DX: R53.83 Other fatigue (principal)
CPT/HCPCS: 99213

== ENCOUNTER 2024-01-25 09:40 | Outpatient (REF) | payer OTHER, SELFPAY ==
[2024-01-25 13:16] LABS: MANUAL DIFF FLAG NO
[2024-01-25 13:37] LABS: Eosinophils Absolute Auto 0.2 X10*3/uL (0.0-0.4); Eosinophils Percent Auto 4.2 % (0-4); Hematocrit 39.6 % (37.0-47.0); Hemoglobin 13.4 g/dl (12.0-16.0); Lymphocytes Absolute Auto 1.3 X10*3/uL (1.2-4.9); Lymphocytes Percent Auto 33.1 % (20-40); Mean Corpuscular HGB Conc 33.8 g/dl (31.0-35.0); Mean Corpuscular Hemoglobin 31.5 pg (27.0-33.0); Mean Corpuscular Volume 93.2 fL (80.0-98.0); Mean Platelet Volume 10.1 fL (9.4-12.3); Monocytes Absolute Auto 0.4 X10*3/uL (0.1-1.2); Monocytes Percent Auto 9.7 % (2-11); Platelet Count 260 X10*3/uL (160-400); Red Blood Count 4.25 X10*6/uL (4.20-5.50); Red Cell Distribution Width 14.2 % (11.0-16.0); White Blood Count 3.8 X10*3/uL (4.8-10.8)
[2024-01-25 13:56] LABS: Alanine Aminotransferase 12 U/L (0-31); Albumin Level 4.1 g/dL (3.5-5.0); Alkaline Phosphatase 58 U/L (39-117); Anion Gap 10 (12-20); Aspartate Amino Transferase 16 U/L (5-31); Bilirubin Total 0.5 mg/dL (0.0-1.0); Blood Urea Nitrogen 13 mg/dL (9-16); Calcium 9.4 mg/dL (8.4-10.2); Carbon Dioxide 26 mmol/L (22-29); Chloride 110 mmol/L (96-108); Estimated Glomerular Filt Rate > 60; Glucose Random 91 mg/dL (60-115); Potassium 4.1 mmol/L (3.3-5.1); Sodium 142 mmol/L (135-145); Total Protein 6.8 g/dL (6.5-8.0)
[2024-01-25 16:16] LABS: Appearance Urine Turbid; Color Urine Yellow; Glucose Urine UA Negative (Negative); Leukocyte Esterase Urine Negative (Negative); Nitrite Urine Negative (Negative); Specific Gravity - Urine 1.015 (1.005-1.025); Urine Blood Negative (Negative); Urine Ketones Negative (Negative); Urine Protein Negative (Neg-Trace)
== END 2024-01-25 09:41 | disposition home or self-care (01) ==
LOC: HO.HMGCLDS 09:40
PROVIDERS: PCP Nurse Practitioner Family; Visit Provider Nurse Practitioner Family
DX: Z00.00 Encounter for general adult medical examination without abnormal findings (principal); R53.83 Other fatigue; E83.19 Other disorders of iron metabolism
CPT/HCPCS: 36415; 80053; 81003; 81256; 85025

== ENCOUNTER 2024-05-12 13:38 | Outpatient (REF) | payer OTHER, SELFPAY ==
[2024-05-12 13:57] LABS: MANUAL DIFF FLAG NO
[2024-05-12 14:59] LABS: Basophils Percent Auto 0.6 % (0-2); Eosinophils Absolute Auto 0.1 X10*3/uL (0.0-0.4); Hematocrit 40.2 % (37.0-47.0); Hemoglobin 13.2 g/dl (12.0-16.0); Imm Gran Abs Auto 0.01 X10*3/uL (0.00-0.03); Imm Gran Pct Auto 0.2 % (0.0-0.4); Lymphocytes Absolute Auto 1.4 X10*3/uL (1.2-4.9); Lymphocytes Percent Auto 27.6 % (20-40); Mean Corpuscular HGB Conc 32.8 g/dl (31.0-35.0); Mean Corpuscular Volume 94.4 fL (80.0-98.0); Mean Platelet Volume 10.1 fL (9.4-12.3); Monocytes Absolute Auto 0.4 X10*3/uL (0.1-1.2); Monocytes Percent Auto 7.7 % (2-11); Neutrophils Absolute Auto 3.2 x10*3/uL (2.0-8.3); Neutrophils Percent Auto 62.9 % (45-73); Platelet Count 279 X10*3/uL (160-400); Red Blood Count 4.26 X10*6/uL (4.20-5.50); Red Cell Distribution Width 14.2 % (11.0-16.0); White Blood Count 5.1 X10*3/uL (4.8-10.8)
[2024-05-12 15:28] LABS: Alanine Aminotransferase 13 U/L (0-31); Albumin Level 4.2 g/dL (3.5-5.0); Anion Gap 12 (12-20); Aspartate Amino Transferase 18 U/L (5-31); Bilirubin Total 0.4 mg/dL (0.0-1.0); Blood Urea Nitrogen 18 mg/dL (9-16); Calcium 9.5 mg/dL (8.4-10.2); Carbon Dioxide 26 mmol/L (22-29); Chloride 106 mmol/L (96-108); Estimated Glomerular Filt Rate > 60; Glucose Random 81 mg/dL (60-115); Iron 110 mcg/dL (30-160); Percent Iron Saturation 40 % (15-50); Potassium 4.1 mmol/L (3.3-5.1); Sodium 140 mmol/L (135-145); Total Iron Binding Capacity 272 mcg/dL (228-428); Total Protein 6.9 g/dL (6.5-8.0); Unsaturated Iron Binding 162 ug/dL
[2024-05-12 15:34] LABS: Alkaline Phosphatase 65 U/L (39-117)
[2024-05-12 15:42] LABS: Ferritin 80 ng/mL (10-250)
== END 2024-05-12 13:39 | disposition home or self-care (01) ==
LOC: HO.LAB 13:38
PROVIDERS: PCP Nurse Practitioner Family; Visit Provider Nurse Practitioner Family
DX: E83.19 Other disorders of iron metabolism (principal)
CPT/HCPCS: 36415; 80053; 82728; 83540; 85025

== ENCOUNTER 2024-05-26 09:58 | Outpatient (AMB) | payer OTHER, SELFPAY ==
[2024-05-26 10:05] VITALS: BP 130/80; PULSE 60; O2SAT 98; BMI 25.1
--- NOTE | 2024-05-26 10:05 | A.OFFPC_ITS ---
Vital Signs 05/26/24 10:05 Height 5 ft 9 in Weight 170 lb BMI 25.1 BP 130/80 Blood Pressure Location Rt brachial Position Sitting Pulse 60 Pulse Source Pulse Oximeter Pulse Oximetry (%) 98 Intake Visit Reasons: blood work f/u Intake Note: pt is here for f/up [employer] Worker Required: No Accompanied by: Self / Same As Patient Allergies Lisinopril-Hydrochlorothiazide Adverse Reaction (Unknown, Uncoded 05/26/24 10:05) cough Medication List - Last Reconciled 05/26/24 by KELLY Guadarrama- epinephrine (EpiPen 2-Pete) 0.3 mg (0.3 mL) IM Q4H PRN losartan 50 mg PO DAILY trazodone 50 mg PO BEDTIME PRN 90 days Tobacco use date assessed: 11/07/23 Dental Screening Dental Screen Date: 11/07/23 HPI blood work f/u HPI Details Chief Complaint Follow-up for fatigue management. History of Present Illness The patient is a 64-year-old female presenting with leukopenia. She is following up after recent blood work that showed her white blood cell count has improved to 5.1, which is above the 4.8 threshold considered normal. There have been no critical low values necessitating aggressive intervention or bone marrow biopsy. Historical context suggests fluctuations in her white cell count but currently maintaining in the typical range. Additional history includes ongoing symptoms of fatigue, suspected to be multifactorial, with a noted impact on daily life. The patient uses Trazodone intermittently for sleep disturbances, typically finding grogginess as a side effect when not timed correctly. 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 There is a history of osteoarthritis, for which she uses turmeric to manage symptoms, with perceived efficacy in pain relief. Social History - Patient consumes mainly chicken, with limited red meat intake. - Reports use of Trazodone for sleep as needed. - Discusses minimal intake of processed foods, avoiding artificial sweeteners. - Maintains up-to-date with mammogram sc reenings. - No tobacco or substance use reported. Health Maintenance - Recent blood tests indicating normal k idney function, liver function, and iron levels. - Mammograms are current. - Vitamin D supplementation noted. Review of Systems - General: Reports fatigue. - Musculoskeletal: Reports arthritic dacia n. - Neurological: Denies new neurologic sy mptoms. Physical Exam General: Cooperative, healthy appearing, comfortable, no acute distress and well developed Orientation: Patient oriented x3 Limitations: No limitations Head: Normal to inspection Ears: Hearing grossly normal bilaterally Nose: Normal external nose present Face and sinus: Normal facial exam Eyes: Appearance normal, both eyes and all related structures Neck: Normal visual inspection and Yes full ROM Respiratory: Normal respiratory effort and able to speak in complete sentences. Clear to auscultation bilaterally Cardiovascular: Regular rate and rhythm. Normal S1 and S2 GI: Normal to inspection. Soft to palpation and nontender Skin: No rashes or lesions noted Neuro: Patient oriented x3 Extremities: Normal to inspection Results - Labs: White blood cell count at 5.1, n ormal renal and liver function, iron levels within the normal range, positive for one hemochromatosis variant as a carrier. Plan - Continue monitoring leukopenia with ro utine blood work. - Encourage continued use of Trazodone P RN for sleep disturbances. - Advise maintaining Vitamin D and turme isaias supplementation as they seem effective for patient. - Discuss avoidance of unnecessary proce ssed foods in diet for better overall health management. - Comprehensive lab work to be ordered t o ensure ongoing stability of organ functions and cell counts. Patient was informed and verbally consented to the use of an ambient scribe for clinic note documentation during this visit. Discussion Notes We reviewed the patient's recent blood work and confirmed the improvement in leukopenia with a white blood cell count of 5.1, within a normal range. The patient is advised to continue with her current management of fatigue using Trazodone PRN, while also maintaining vitamin D and turmeric for osteoarthritis symptom relief. The possible role of diet in managing inflammation and general health was discussed, especially the benefits of avoiding processed foods. We addressed the hemochromatosis carrier status as non-pathological. Follow-up plans are scheduled for further monitoring with regular lab assessments to ensure continued management of leukopenia and overall health status. Patient Instructions - Continue monitoring your symptoms and report any significant changes. - Use Trazodone as needed for sleep, magen ing caution to avoid grogginess by timing correctly. - Maintain your existing diet with a foc us on whole foods and minimizing processed options. - Keep up with regular screening appoint ments, including blood work and mammograms. -pt will be going for sleep study in e near future [facility] Medical History Sinusitis Leukopenia Osteoarthritis CMC arthritis, thumb, degenerative H/O cardiac murmur Surgical History No pertinent past surgical history Family History Father Prostate cancer Mother No problems noted. Paternal Grandmother Leukemia Social History Household Members: Significant Other Housing: House Alcohol intake: current Patient Tobacco Use Status: Never used Tobacco (40 years ) Years Smoked: 5 years e-Cigarette/Vaping Use: Never Used Second Hand Smoke Exposure: No service: No Current occupational status: unemployed Cognitive needs: No Hearing needs: No Vision needs: No Questionnaire Thrive Questionnaire Date Thrive assessed: 05/26/24 I am a: Patient What is your living situation today?: I have a steady place to live Within the past 12 months, did the food you bought not last and you didn't have the money to get more?: Never true Within the past 12 months, did you worry whether your food would run out before you got money to buy more?: Never true Do you have trouble paying for medicines?: No Do you have trouble getting transportation to medical appointments?: No Do you have trouble paying your heating and electricity bill?: No Do you have trouble taking care of your child, family member or friend?: No Do you have trouble with day-to-day activities such as bathing, preparing meals, shopping, managing finances, etc.?: No Are you currently unemployed and looking for a job?: No Are you interested in more education?: No Please select the resources that you would like help with: None Currently or been in a relationship where the following occur: No concerns reported THRIVE Score: 0 PHILLIP-7 AMB Questionnaire PHILLIP-7 Date PHILLIP - 7 assessed: 01/23/24 Source: Developed by Drs. Jonathan Okeefe, Ai Joseph, Kun Fox and colleagues, with an educational carrie from [employer]. Physical exam (Primary Care) Vital Signs: Last Vital Signs Pulse 60 05/26/24 10:05 BP 130/80 05/26/24 10:05 Pulse Ox 98 05/26/24 10:05 BMI result Body Mass Index 25.1 Tobacco/Smoking Status: Tobacco use Status Tobacco use date assessed 11/07/23 05/26/24 10:06 Patient Tobacco Use Status Never used Tobacco (40 years 05/26/24 10:06 ) e-Cigarette/Vaping Use Never Used 05/26/24 10:06 Thrive Assessment: Date of Thrive Assessment Date Thrive assessed 05/26/24 05/26/24 10:06 Currently or been in a relationship where the following occur: No concerns reported Office Procedures Flu Questionnaire Does the patient have a severe egg allergy?: No Does the patient have severe life threatening allergies?: No Does the patient have a fever or illness today?: No Has the patient ever had Guillain-Tacoma Syndrome?: No Has the patient ever had any past reaction to a flu shot?: No Immunizations Fluarix Triv 2995-6133 (PF) 45 mcg (15 mcg x 3)/0.5 mL IM syringe Performing Provider: GLENROY Guadarrama Performing Location: [facility] Administered by: Iker Landaverde CMA on 05/26/24 11:06 Dose Route Admin Location Dispensed Lot Number Expiration Date [facility] Certified Coder 0.5 mL IM Right Deltoid 0.5 mL [id number] 12/08/24 [id number] Integrity Tracking VIS Given Date VIS Provided VIS Publication Date 05/26/24 Single Vaccine 21 Eligibility Eligibility Date Funding Source Not [facility] Eligible 05/26/24 Private Coding Level of Care Code Est Pt Level 3 (84888) Diagnoses Vitamin D deficiency E55.9 Insomnia G47.00 Fatigue R53.83 Assessment & Plan Assessment & Plan (1) Vitamin D deficiency: Code(s): E55.9 - Vitamin D deficiency, unspecified Category: Medical (2) Insomnia: Code(s): G47.00 - Insomnia, unspecified Category: Medical (3) Fatigue: Code(s): R53.83 - Other fatigue Category: Medical Plan . Orders: Orders Complete Blood Count Auto Diff Today E83.19 - Other disorders of iron metabolism UA CC w/rflx Micro + Cult Today E83.19 - Other disorders of iron metabolism Ferritin Today E83.19 - Other disorders of iron metabolism IRON PROFILE Today E83.19 - Other disorders of iron metabolism Lipid Panel Today E83.19 - Other disorders of iron metabolism Comprehensive [place]. Panel Fast Today E83.19 - Other disorders of iron metabolism TSH reflex Free T4 Today E83.19 - Other disorders of iron metabolism Vitamin D 25-OH Total Today E55.9 - Vitamin D deficiency, unspecified Influenza 7490-4488 Immunization Today Z23 - Encounter for immunization
== END 2024-05-26 11:17 | disposition home or self-care (01) ==
PROVIDERS: PCP Nurse Practitioner Family; Visit Provider Nurse Practitioner Family
DX: E55.9 Vitamin D deficiency, unspecified (principal); G47.00 Insomnia, unspecified; R53.83 Other fatigue; Z23 Encounter for immunization

== ENCOUNTER → 2024-05-26 09:58 | Outpatient (BNVA) | payer OTHER, SELFPAY | PROVIDERS: PCP Nurse Practitioner Family; Visit Provider Nurse Practitioner Family | DX: D72.819 Decreased white blood cell count, unspecified (principal); E55.9 Vitamin D deficiency, unspecified; G47.00 Insomnia, unspecified; R53.83 Other fatigue; E83.19 Other disorders of iron metabolism; Z23 Encounter for immunization; Z79.899 Other long term (current) drug therapy | CPT/HCPCS: 90471; 90656; 99212 ==

== ENCOUNTER 2024-08-18 09:42 | Outpatient (REF) | payer OTHER, SELFPAY ==
--- OUTSIDE RECORDS SUMMARY | 2024-08-18 10:37 | XMS_ITS | Clinical Summary ---
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 Seborrheic keratosis 06/18/2012 DX:Seborrhe ic keratosis Essential (primary) hypertension DX:Essential (primary) hypertension Family History Medical History Relation Name Comments Breast cancer Neg Hx Social History Tobacco Use Types Packs/Day Years Used Date Smoking Tobacco: Never Smokeless Tobacco: Never Alcohol Use Standard Drinks/Week Comments Yes 0 (1 standard drink = 0.6 oz pur e alcohol) Comments Unknown Sex and Gender Information Value Date Recorded Sex Assigned at Not on file Legal Sex Female 5:49 AM EST Gender Identity Not on file Sexual Orientation Not on file Obstetrics History Last Filed Vital Signs Vital Sign Reading Time Taken Comments Blood Pressure - - Pulse - - Temperature - - Respiratory Rate - - Oxygen Saturation - - Inhaled Oxygen Concentration - - Weight 77.1 kg (170 lb) 09/15/2021 1:14 PM EDT Height 177.8 cm (5' 10 ) 09/15/2021 1:14 PM EDT Body Mass Index 24.39 09/15/2021 1:14 PM EDT Plan of Treatment Upcoming Encounters Date Type Department Care Team (Late st Contact Info) Description 09/26/2024 9:40 AM EDT Appointment Radiology Department [address] [phone] Health Maintenance Due Date Last Done Comments COVID-19 Vaccine (#1) 1966 DTaP,Tdap,and Td Vaccines (1 - Tdap) 1980 Pneumococcal Vaccine: 50+ Years (1 of 2 - PCV) 1980 Pneumococcal Vaccine: Pediatrics (0 to 5 Years) and At-Risk Patients (6 to 64 Years) (1 of 2 - PCV) 1980 Zoster Vaccines (1 of 2) 1980 Cervical Cancer Screening: Pap Smear 1982 Colorectal Cancer Screening: Colonoscopy 05/20/2022 Depression Screening 05/20/2022 HIV Screening 05/20/2022 Hepatitis C Screening 05/20/2022 Social Influencers of Health Screening 05/20/2022 Influenza Vaccine (#1) 2024 Breast Cancer Screening 09/16/2025 09/17/19 24, 09/17/2023, 09/11/2022, Additional history exists RSV Immunization Patients 60+ Years Old (1 - 1-dose 75+ series) 2036 HIB Vaccines Aged Out No longer eligi ble based on patient's age to complete this topic HPV Vaccines Aged Out No longer eligi ble based on patient's age to complete this topic Hepatitis A Vaccines Aged Out No long er eligible based on patient's age to complete this topic Hepatitis B Vaccines Aged Out No long er eligible based on patient's age to complete this topic IPV Vaccines Aged Out No longer eligi ble based on patient's age to complete this topic MMR Vaccines Aged Out No longer eligi ble based on patient's age to complete this topic Meningococcal ACWY Vaccine Aged Out N o longer eligible based on patient's age to complete this topic Meningococcal B Vacine Aged Out No lo nger eligible based on patient's age to complete this topic RSV Immunization Patients Under 20 months Aged Out No longer eligible based on patient's age to complete this topic Varicella Vaccines Aged Out No longer eligible based on patient's age to complete this topic Procedures Procedure Name Priority Date/Time Associated Diagnosis Comments SCREENING MAMMOGRAPHY BI 2-VIEW BREAST INC CAD Routine 09/17/2023 2:12 PM EDT Encounter for screening mammogram for malignant neoplasm of breast from Last 3 Months or Most Recently Relevant to Health Maintenance Results * SCREENING MAMMOGRAPHY BI 2-VIEW BREAST INC CAD (09/17/2023 2:12 PM EDT) Anatomical Region Laterality Modality Radiographic Bekah ging 09/11/2022 2:10 PM EDT Narrative 09/18/2023 11:33 AM EDT This is a summary report. The complete report is available in the patient's medical record. If you cannot access the medical record, please contact the sending organization for a detailed fax or copy. BILATERAL 3D DIGITAL SCREENING MAMMOGRAM History: Routine screening. ??No current breast complaints. Comparison: Multiple priors dating back to 06/16/2019 Technique: Bilateral full-field digital 3D mammography was performed using standard CC and MLO projections CAD was used to evaluate this mammogram. Findings: Density: ??There are scattered areas of fibroglandular density-B RIGHT: No suspicious masses, groups of microcalcification or areas of architectural distortion identified. Stable typically benign parenchymal asymmetries LEFT: No suspicious masses, groups of microcalcifications or areas of architectural distortion identified. Stable typically benign parenchymal asymmetries IMPRESSION: : 1. ??No mammographic evidence of malignancy. BI-RADS Category 2 benign findings Recommendation: Routine annual screening mammography is recommended Procedure Note Simone Victor MD - 01/28/2024 This is a summary report. The complete report is available in thepatient's medical record. If you cannot access the medical record, pleasecontact the sending organization for a detailed fax or copy. BILATERAL 3D DIGITAL SCREENING MAMMOGRAM History: Routine screening. No current breast complaints. Comparison: Multiple priors dating back to 06/16/2019 Technique: Bilateral full-field digital 3D mammography was performed usingstandard CC and MLO projections CAD was used to evaluate this mammogram. Findings: Density: There are scattered areas of fibroglandular density-B RIGHT: No suspicious masses, groups of microcalcification or areas ofarchitectural distortion identified. Stable typically benign parenchymalasymmetries LEFT: No suspicious masses, groups of microcalcifications or areas ofarchitectural distortion identified. Stable typically benign parenchymalasymmetries IMPRESSION: : 1. No mammographic evidence of malignancy. BI-RADS Category 2 benign findings Recommendation: Routine annual screening mammography is recommended us Trae Ruano MD IMG XR PROCEDURES Final Result from Last 3 Months or Most Recently Relevant to Health Maintenance Care Teams [place] Captain Relationship Specialty Start Date End Date Jeimy France MD [address] [place] [phone] PCP - General Internal Medicine 05/22/16
[2024-08-18 13:14] LABS: MANUAL DIFF FLAG NO
[2024-08-18 13:32] LABS: Basophils Percent Auto 0.9 % (0-2); Eosinophils Absolute Auto 0.1 X10*3/uL (0.0-0.4); Eosinophils Percent Auto 2.7 % (0-4); Hematocrit 38.6 % (37.0-47.0); Hemoglobin 12.7 g/dl (12.0-16.0); Imm Gran Abs Auto 0.01 X10*3/uL (0.00-0.03); Imm Gran Pct Auto 0.3 % (0.0-0.4); Lymphocytes Absolute Auto 1.2 X10*3/uL (1.2-4.9); Lymphocytes Percent Auto 35.6 % (20-40); Mean Corpuscular HGB Conc 32.9 g/dl (31.0-35.0); Mean Corpuscular Hemoglobin 30.9 pg (27.0-33.0); Mean Corpuscular Volume 93.9 fL (80.0-98.0); Mean Platelet Volume 10.5 fL (9.4-12.3); Monocytes Absolute Auto 0.4 X10*3/uL (0.1-1.2); Monocytes Percent Auto 10.4 % (2-11); Neutrophils Absolute Auto 1.7 x10*3/uL (2.0-8.3); Neutrophils Percent Auto 50.1 % (45-73); Platelet Count 251 X10*3/uL (160-400); Red Blood Count 4.11 X10*6/uL (4.20-5.50); Red Cell Distribution Width 14.5 % (11.0-16.0); White Blood Count 3.4 X10*3/uL (4.8-10.8)
[2024-08-18 14:09] LABS: Alanine Aminotransferase 15 U/L (0-31); Albumin Level 3.9 g/dL (3.5-5.0); Alkaline Phosphatase 59 U/L (39-117); Anion Gap 12 (12-20); Aspartate Amino Transferase 20 U/L (5-31); Bilirubin Total 0.5 mg/dL (0.0-1.0); Blood Urea Nitrogen 16 mg/dL (9-16); Calcium 8.7 mg/dL (8.4-10.2); Carbon Dioxide 22 mmol/L (22-29); Chloride 110 mmol/L (96-108); Cholesterol 181 mg/dL (<200); Estimated Glomerular Filt Rate > 60; Ferritin 70 ng/mL (10-250); Glucose Fasting 89 mg/dL (60-99); HDL Cholesterol 63 mg/dL (>40); Iron 138 mcg/dL (30-160); LDL Cholesterol Calculated 104 mg/dL (<100); Percent Iron Saturation 53 % (15-50); Potassium 4.2 mmol/L (3.3-5.1); Sodium 140 mmol/L (135-145); TSH reflex Free T4 1.04 uIU/mL (0.32-4.0); Total Iron Binding Capacity 260 mcg/dL (228-428); Total Protein 6.9 g/dL (6.5-8.0); Triglycerides 72 mg/dL (<150); Unsaturated Iron Binding 122 ug/dL; Vitamin D 25-OH Total 48.6 ng/mL (>30)
== END 2024-08-18 09:43 | disposition home or self-care (01) ==
LOC: HO.HMGCLDS 09:42
PROVIDERS: PCP Nurse Practitioner Family; Visit Provider Nurse Practitioner Family
DX: E83.19 Other disorders of iron metabolism (principal)
CPT/HCPCS: 36415; 80053; 80061; 82306; 82728; 83540; 84443; 85025

== ENCOUNTER 2024-11-21 10:42 | Outpatient (REF) | payer OTHER, SELFPAY ==
--- OUTSIDE RECORDS SUMMARY | 2024-11-21 11:44 | XMS_ITS | Clinical Summary ---
Author Organization [facility] Address [address] [place] [phone] Care Team Providers Care Intelligence Agent Name Role Phone Jeimy France MD Primary Care Provider [phone] Surgical History Surgery Date Site/Laterality Comments BREAST [...] Care Team (Late st Contact Info) Description 12/05/2024 8:50 AM EDT Appointment Radiology Department [address] [phone] Health Maintenance Due Date Last Done Comments [...] Influencers of Health Screening 05/20/2022 Influenza Vaccine (Season Ended) 2025 Breast Cancer Screening 09/16/2025 09/17/19 24, 09/17/2023, 09/11/2022, Additional history exists RSV Immunization Adult Patients (1 - 1-dose 75+ series) 2036 HIB [...] age to complete this topic Meningococcal B Vaccine Aged Out No l onger eligible based on patient's age to complete [...] Recently Relevant to Health Maintenance Care Teams Intelligence Agent Relationship Specialty Start Date End Date Jeimy France MD [address] [place] [phone] PCP - General Internal Medicine 05/22/16
[2024-11-21 12:57] LABS: MANUAL DIFF FLAG NO
[2024-11-21 13:13] LABS: Eosinophils Absolute Auto 0.1 X10*3/uL (0.0-0.4); Eosinophils Percent Auto 2.6 % (0-4); Hematocrit 38.2 % (37.0-47.0); Hemoglobin 12.9 g/dl (12.0-16.0); Lymphocytes Absolute Auto 1.2 X10*3/uL (1.2-4.9); Lymphocytes Percent Auto 39.5 % (20-40); Mean Corpuscular HGB Conc 33.8 g/dl (31.0-35.0); Mean Corpuscular Hemoglobin 30.8 pg (27.0-33.0); Mean Corpuscular Volume 91.2 fL (80.0-98.0); Mean Platelet Volume 10.1 fL (9.4-12.3); Monocytes Absolute Auto 0.3 X10*3/uL (0.1-1.2); Monocytes Percent Auto 11.1 % (2-11); Neutrophils Absolute Auto 1.4 x10*3/uL (2.0-8.3); Neutrophils Percent Auto 45.8 % (45-73); Platelet Count 256 X10*3/uL (160-400); Red Blood Count 4.19 X10*6/uL (4.20-5.50); Red Cell Distribution Width 14.5 % (11.0-16.0); White Blood Count 3.1 X10*3/uL (4.8-10.8)
[2024-11-21 13:24] LABS: Appearance Urine Clear; Color Urine Yellow; Glucose Urine UA Negative (Negative); Leukocyte Esterase Urine Negative (Negative); Nitrite Urine Negative (Negative); Urine Blood Negative (Negative); Urine Ketones Trace mg/dL (Negative); Urine Protein Negative (Neg-Trace)
[2024-11-21 13:51] LABS: Alanine Aminotransferase 13 U/L (0-31); Albumin Level 4.5 g/dL (3.5-5.0); Alkaline Phosphatase 58 U/L (39-117); Anion Gap 11 (12-20); Aspartate Amino Transferase 20 U/L (5-31); Bilirubin Total 0.7 mg/dL (0.0-1.0); Blood Urea Nitrogen 15 mg/dL (9-16); Calcium 9.3 mg/dL (8.4-10.2); Carbon Dioxide 24 mmol/L (22-29); Chloride 108 mmol/L (96-108); Cholesterol 188 mg/dL (<200); Estimated Glomerular Filt Rate > 60; Glucose Fasting 85 mg/dL (60-99); HDL Cholesterol 65 mg/dL (>40); LDL Cholesterol Calculated 112 mg/dL (<100); Potassium 3.9 mmol/L (3.3-5.1); Sodium 139 mmol/L (135-145); TSH reflex Free T4 1.47 uIU/mL (0.32-4.0); Total Protein 6.7 g/dL (6.5-8.0); Triglycerides 55 mg/dL (<150); Vitamin D 25-OH Total 37.1 ng/mL (>30)
== END 2024-11-21 10:43 | disposition home or self-care (01) ==
LOC: HO.HMGCLDS 10:42
PROVIDERS: PCP Nurse Practitioner Family; Visit Provider Nurse Practitioner Family
DX: Z00.00 Encounter for general adult medical examination without abnormal findings (principal); E55.9 Vitamin D deficiency, unspecified
CPT/HCPCS: 36415; 80053; 80061; 81003; 82306; 84443; 85025

== ENCOUNTER 2024-11-26 10:54 | Outpatient (AMB) | payer OTHER, SELFPAY ==
[2024-11-26 10:56] VITALS: BP 130/78; PULSE 56; O2SAT 97; BMI 26.0
--- NOTE | 2024-11-26 10:56 | MHC.PC.OV ---
Vital Signs 11/26/24 10:56 Height 5 ft 9 in Weight 176 lb BMI 26.0 BP 130/78 Blood Pressure Location Rt brachial Position Sitting Pulse 56 Pulse Source Pulse Oximeter Pulse Oximetry (%) 97 Intake Visit Reasons: Annual PE Block Splitter Operator Required: No Allergies bee pollen (bee stings) Allergy (Intermediate, Verified 11/26/24 11:25) Unknown Lisinopril-Hydrochlorothiazide Adverse Reaction (Unknown, Uncoded 11/26/24 10:59) cough Medication List - Last Reconciled 11/26/24 by Manuel Zapien, SUPERVISOR CELL MAINTENANCE- epinephrine (EpiPen 2-Pete) 0.3 mg (0.3 mL) IM Q4H PRN losartan 50 mg PO DAILY trazodone 50 mg PO BEDTIME PRN 90 days Tobacco use date assessed: 11/26/24 Dental Screening Dental Screen Date: 11/26/24 Did you have a dental visit in the last 12 months?: Yes Did you have a dental problem in the last 6 months where you did not have access to dental care?: No Was dental information given to patient?: Patient has dentist HPI Annual PE HPI Details History of Present Illness The patient is a 64-year-old female presenting for a wellness visit and follow-up on rheumatologic care. She reports that her mammograms and colon cancer screenings are up-to-date, indicating adherence to preventative care measures. She is under the care of a breast surgeon at the [facility] and reports doing well overall with her rheumatologic condition. labs already performed Health Maintenance - Mammogram: Up-to-date - Colon cancer screening: Up-to-date Social History Review of Systems - Cardiovascular: Denies chest pain - Respiratory: Denies dyspnea - Constitutional: Denies fever, chills - Gastrointestinal: Denies abdominal pain, blood in stool, constipation, diarrhea Physical Exam General: Cooperative, healthy appearing, comfortable, no acute distress and well developed Orientation: Patient oriented x3 Limitations: No limitations Head: Normal to inspection Ears: Hearing grossly normal bilaterally Nose: Normal external nose present Face and sinus: Normal facial exam Eyes: Appearance normal, both eyes and all related structures Neck: Normal visual inspection and Yes full ROM Respiratory: Normal respiratory effort and able to speak in complete sentences. Clear to auscultation bilaterally Cardiovascular: Regular rate and rhythm. Normal S1 and S2 GI: Normal to inspection. Soft to palpation and nontender Skin: No rashes or lesions noted Neuro: Patient oriented x3 Extremities: Normal to inspection Results [facility] Medical History Sinusitis Leukopenia Osteoarthritis CMC arthritis, thumb, degenerative H/O cardiac murmur Surgical History No pertinent past surgical history Family History Father Prostate cancer Mother No problems noted. Paternal Grandmother Leukemia Social History Household Members: Significant Other Housing: House Alcohol intake: current Patient Tobacco Use Status: Never used Tobacco (40 years ) Years Smoked: 5 years e-Cigarette/Vaping Use: Never Used Second Hand Smoke Exposure: No service: No Current occupational status: unemployed Cognitive needs: No Hearing needs: No Vision needs: No Questionnaire PHQ-9 Over the last 2 weeks, how often have you been bothered by any of the following problems? 1. Little interest or pleasure in doing things: not at all 2. Feeling down, depressed, or hopeless: not at all 3. Trouble falling or staying asleep, or sleeping too much: several days 4. Feeling tired or having little energy: several days 5. Poor appetite or overeating: not at all 6. Feeling bad about yourself - or that you are a failure or have let yourself or your family down: not at all 7. Trouble concentrating on things, such as reading the newspaper or watching television: not at all 8. Moving or speaking so slowly that other people could have noticed. Or the opposite - being so fidgety or restless that you have been moving around a lot more than usual: not at all 9. Thoughts that you would be better off or of hurting yourself in some way: not at all Total score: 2 Depression Screening Interpretation: Negative Depression Screening Done: Yes 45315 - PHQ-9 Billing: Yes Source: Developed by Drs. Jonathan Okeefe, Ai Joseph, Kun Fox and colleagues, with an educational carrie from [employer]. Thrive Questionnaire Date Thrive assessed: 11/26/24 I am a: Patient What is your living situation today?: I have a steady place to live Within the past 12 months, did the food you bought not last and you didn't have the money to get more?: Never true Within the past 12 months, did you worry whether your food would run out before you got money to buy more?: Never true Do you have trouble paying for medicines?: No Do you have trouble getting transportation to medical appointments?: No Do you have trouble paying your heating and electricity bill?: No Do you have trouble taking care of your child, family member or friend?: No Do you have trouble with day-to-day activities such as bathing, preparing meals, shopping, managing finances, etc.?: No Are you currently unemployed and looking for a job?: No Are you interested in more education?: No Please select the resources that you would like help with: None Currently or been in a relationship where the following occur: No concerns reported THRIVE Score: 0 AUDIT C Alcohol Use Questionnaire (AUDIT-C) 1. How often do you have a drink containing alcohol?: 2-4 times a month 2. How many drinks containing alcohol do you have on a typical day when you are drinking?: 1 or 2 3. How often do you have six or more drinks on one occasion?: Never Total Score: 2 Score Reviewed/Action Taken: Yes PHILLIP-7 AMB Questionnaire PHILLIP-7 Date PHILLIP - 7 assessed: 11/26/24 Feeling nervous, anxious, or on edge: 0 = Not at all Not being able to stop or control worryin = Not at all Worrying too much about different things: 0 = Not at all Trouble relaxin = Not at all Being so restless that it is hard to sit still: 0 = Not at all Becoming easily annoyed or irritable: 0 = Not at all Feeling afraid as if something awful might happen: 0 = Not at all Total PHILLIP-7 score (0-4 normal; 5-9 mild; 10-14 moderate; 15-21 severe): 0 Source: Developed by Drs. Jonathan Okeefe, Ai Joseph, Kun Fox and colleagues, with an educational carrie from [employer]. PHILLIP-7 Assessment Billing PHILLIP-7 Assessment Tool: PHILLIP-7 Assessment 92047 Physical exam (Primary Care) Vital Signs: Last Vital Signs Pulse 56 11/26/24 10:56 BP 130/78 11/26/24 10:56 Pulse Ox 97 11/26/24 10:56 BMI result Body Mass Index 26.0 Tobacco/Smoking Status: Tobacco use Status Tobacco use date assessed 11/26/24 11/26/24 11:02 Patient Tobacco Use Status Never used Tobacco (40 years 11/26/24 10:56 ) e-Cigarette/Vaping Use Never Used 11/26/24 10:56 PHQ-9: PHQ-9 Score PHQ-9: Total score 2 11/26/24 11:02 Depression Screening Interpretation: Negative Thrive Assessment: Date of Thrive Assessment Date Thrive assessed 11/26/24 11/26/24 10:56 Currently or been in a relationship where the following occur: No concerns reported Coding Level of Care Code Est Pt Prev Care 40-64y(02146) Diagnoses Physical exam Z00.00 Additional Codes PHILLIP-7 Assessment Billing - PHILLIP-7 Assessment Tool: PHILLIP-7 Assessment 27389 ([id number]) PHQ-9 - 39635 - PHQ-9 Billing: Yes ([id number]) Assessment & Plan Assessment & Plan (1) Physical exam: Code(s): Z00.00 - Encounter for general adult medical examination without abnormal findings Category: Medical Plan . Medications: Refilled epinephrine (EpiPen 2-Pete) 0.3 mg (0.3 mL) IM Q4H PRN 2 ea 2RF anaphylaxis
--- OUTSIDE RECORDS SUMMARY | 2024-11-26 12:34 | XMS_ITS | Clinical Summary ---
Author Organization [facility] Address [address] [place] [address] Care Team Providers Care Billposting Supervisor Name Role Phone Jeimy France MD Primary Care Provider [phone] Surgical History Surgery Date Site/Laterality Comments BREAST [...] 12/05/2024 8:50 AM EDT Appointment Radiology Department [address] [phone] Health Maintenance Due Date Last Done Comments [...] typically benign parenchymal asymmetries IMPRESSION: : 1. No mammographic evidence of [...] Recently Relevant to Health Maintenance Care Teams Billposting Supervisor Relationship Specialty Start Date End Date Jeimy France MD [address] [place] [address] PCP - General Internal Medicine 05/22/16
== END 2024-11-26 11:43 | disposition home or self-care (01) ==
LOC: HO.HMCC 10:55
PROVIDERS: PCP Nurse Practitioner Family; Visit Provider Nurse Practitioner Family
DX: Z00.00 Encounter for general adult medical examination without abnormal findings (principal)

== ENCOUNTER → 2024-11-26 10:54 | Outpatient (BNVA) | payer OTHER, SELFPAY | PROVIDERS: PCP Nurse Practitioner Family; Visit Provider Nurse Practitioner Family | DX: Z00.00 Encounter for general adult medical examination without abnormal findings (principal) | CPT/HCPCS: 96127; 99396 ==

== ENCOUNTER 2025-05-20 08:32 | Outpatient (REF) | payer OTHER, SELFPAY ==
[2025-05-20 10:03] LABS: MANUAL DIFF FLAG NO
[2025-05-20 10:08] LABS: Hematocrit 39.7 % (37.0-47.0); Hemoglobin 13.3 g/dl (12.0-16.0); Imm Gran Abs Auto 0.00 X10*3/uL (0.00-0.03); Imm Gran Pct Auto 0.0 % (0.0-0.4); Lymphocytes Absolute Auto 1.4 X10*3/uL (1.2-4.9); Mean Corpuscular HGB Conc 33.5 g/dl (31.0-35.0); Mean Corpuscular Hemoglobin 31.1 pg (27.0-33.0); Mean Corpuscular Volume 92.8 fL (80.0-98.0); NRBC Abs Auto 0.000 X10*3/uL (0.0-0.012); NRBC Pct Auto 0.0 /100WBC (0.0-0.2); Platelet Count 274 X10*3/uL (160-400); Red Blood Count 4.28 X10*6/uL (4.20-5.50); White Blood Count 3.4 X10*3/uL (4.8-10.8)
[2025-05-20 10:40] LABS: Alanine Aminotransferase 13 U/L (0-31); Albumin Level 4.4 g/dL (3.5-5.0); Alkaline Phosphatase 63 U/L (39-117); Anion Gap 10 (12-20); Aspartate Amino Transferase 18 U/L (5-31); Blood Urea Nitrogen 17 mg/dL (9-16); Calcium 9.1 mg/dL (8.4-10.2); Carbon Dioxide 27 mmol/L (22-29); Chloride 107 mmol/L (96-108); Cholesterol 190 mg/dL (<200); Estimated Glomerular Filt Rate > 60; HDL Cholesterol 70 mg/dL (>40); Potassium 4.6 mmol/L (3.3-5.1); Sodium 139 mmol/L (135-145); Total Protein 6.7 g/dL (6.5-8.0); Triglycerides 60 mg/dL (<150)
== END 2025-05-20 08:33 ==
LOC: HO.HMGCLDS 08:32
PROVIDERS: PCP Nurse Practitioner Family; Visit Provider Nurse Practitioner Family
DX: Z00.00 Encounter for general adult medical examination without abnormal findings (principal); E55.9 Vitamin D deficiency, unspecified
CPT/HCPCS: 36415; 80053; 80061; 82306; 84443; 85025

== ENCOUNTER 2025-05-25 13:57 | Outpatient (AMB) | payer OTHER, SELFPAY ==
--- NOTE | 2025-05-25 14:03 | MHC.PC.OV ---
Vital Signs 05/25/25 14:05 Height 5 ft 9 in Weight 178 lb BMI 26.3 BP 148/90 H Blood Pressure Location Lt brachial Position Sitting Respiration 16 Pulse 57 Pulse Source Pulse Oximeter Pulse Oximetry (%) 98 Oxygen Delivery Method Room Air Intake Visit Reasons: 6m follow up Per Diem Physical Therapist Assistant Required: No Accompanied by: Self / Same As Patient Allergies bee pollen (bee stings) Allergy (Intermediate, Verified 05/25/25 15:04) Unknown Lisinopril-Hydrochlorothiazide Adverse Reaction (Unknown, Uncoded 05/25/25 15:04) cough Medication List - Last Reconciled 05/25/25 by Manuel Zapien, WINDOW INSTALLER- epinephrine (EpiPen 2-Pete) 0.3 mg (0.3 mL) IM Q4H PRN losartan 50 mg PO DAILY trazodone 50 mg PO BEDTIME PRN 90 days Tobacco use date assessed: 05/25/25 Fall risk assessment: No Falls in past year Last assessed Fall Risk: 05/25/25 Dental Screening Dental Screen Date: 05/25/25 Did you have a dental visit in the last 12 months?: Yes Did you have a dental problem in the last 6 months where you did not have access to dental care?: No Was dental information given to patient?: Patient has dentist HPI 6m follow up HPI Details Chief Complaint Patient presents for a follow-up visit for insomnia. History of Present Illness The patient is a 65-year-old female presenting for a follow-up visit for insomnia. She takes trazodone as needed, which helps with her symptoms, but she is concerned about becoming dependent on it. The patient is on losartan for hypertension and will provide home blood pressure readings. She also has a history of leukopenia, for which she has previously seen a compensation adjuster, and this condition is being monitored with trend analysis. Her recent labs were noted to be within normal limits and generally benign. Social History Health Maintenance Review of Systems - General: Reports insomnia. - Cardiovascular: Denies chest pain. - Respiratory: Denies shortness of breath. - Neurological: Denies headache and dizziness. - Eyes: Denies blurred vision. Physical Exam General: Cooperative, healthy appearing, comfortable, no acute distress and well developed Orientation: Patient oriented x3 Limitations: No limitations Head: Normal to inspection Ears: Hearing grossly normal bilaterally Nose: Normal external nose present Face and sinus: Normal facial exam Eyes: Appearance normal, both eyes and all related structures Neck: Normal visual inspection and Yes full ROM Respiratory: Normal respiratory effort and able to speak in complete sentences. Clear to auscultation bilaterally Cardiovascular: Regular rate and rhythm. Normal S1 and S2, faint systolic murmur GI: Normal to inspection. Soft to palpation and nontender Skin: No rashes or lesions noted Neuro: Patient oriented x3 Extremities: Normal to inspection Results - Recent labs were within normal limits, with the exception of a minor leukopenia. Plan 1. Insomnia The patient uses trazodone PRN for insomnia, which is effective. 2. Hypertension The patient's blood pressure was elevated today. She will continue her daily losartan and will send home blood pressure values for further evaluation. 3. Leukopenia The patient has a history of leukopenia, which is being monitored by watching trends. Discussion Notes I advised the patient that she is doing quite well overall. We will have her return for a follow-up physical in 6 months. Patient Instructions - Continue taking your losartan medication every day for blood pressure. - Please send me your blood pressure readings from home. - Please schedule a follow-up appointment for a physical examination in 6 months. [facility] Medical History Sinusitis Leukopenia Osteoarthritis CMC arthritis, thumb, degenerative H/O cardiac murmur Surgical History No pertinent past surgical history Family History Father Prostate cancer Mother No problems noted. Paternal Grandmother Leukemia Social History Household Members: Significant Other Housing: House Alcohol intake: current Patient Tobacco Use Status: Never used Tobacco (40 years ) Years Smoked: 5 years e-Cigarette/Vaping Use: Never Used Second Hand Smoke Exposure: No service: No Current occupational status: unemployed Cognitive needs: No Hearing needs: No Vision needs: No Questionnaire Thrive Questionnaire Date Thrive assessed: 11/26/24 I am a: Patient What is your living situation today?: I have a steady place to live Within the past 12 months, did the food you bought not last and you didn't have the money to get more?: Never true Within the past 12 months, did you worry whether your food would run out before you got money to buy more?: Never true Do you have trouble paying for medicines?: No Do you have trouble getting transportation to medical appointments?: No Do you have trouble paying your heating and electricity bill?: No Do you have trouble taking care of your child, family member or friend?: No Do you have trouble with day-to-day activities such as bathing, preparing meals, shopping, managing finances, etc.?: No Are you currently unemployed and looking for a job?: No Are you interested in more education?: No Please select the resources that you would like help with: None Currently or been in a relationship where the following occur: No concerns reported THRIVE Score: 0 PHILLIP-7 AMB Questionnaire PHILLIP-7 Date PHILLIP - 7 assessed: 11/26/24 Feeling nervous, anxious, or on edge: 0 = Not at all Not being able to stop or control worryin = Not at all Worrying too much about different things: 0 = Not at all Trouble relaxin = Several days Being so restless that it is hard to sit still: 0 = Not at all Becoming easily annoyed or irritable: 0 = Not at all Feeling afraid as if something awful might happen: 0 = Not at all Total PHILLIP-7 score (0-4 normal; 5-9 mild; 10-14 moderate; 15-21 severe): 1 Source: Developed by Drs. Jonathan Okeefe, Ai Joseph, Kun Fox and colleagues, with an educational carrie from [employer]. Physical exam (Primary Care) Vital Signs: Last Vital Signs Pulse 57 05/25/25 14:05 Resp 16 05/25/25 14:05 BP 148/90 H 05/25/25 14:05 Pulse Ox 98 05/25/25 14:05 Oxygen Delivery Method Room Air 05/25/25 14:05 BMI result Body Mass Index 26.3 Tobacco/Smoking Status: Tobacco use Status Tobacco use date assessed 05/25/25 05/25/25 14:11 Patient Tobacco Use Status Never used Tobacco (40 years 05/25/25 14:06 ) e-Cigarette/Vaping Use Never Used 05/25/25 14:06 Thrive Assessment: Date of Thrive Assessment Date Thrive assessed 11/26/24 05/25/25 14:06 Currently or been in a relationship where the following occur: No concerns reported Office Procedures Flu Questionnaire Does the patient have a severe egg allergy?: No Does the patient have severe life threatening allergies?: No Does the patient have a fever or illness today?: No Has the patient ever had Guillain-[place] Syndrome?: No Has the patient ever had any past reaction to a flu shot?: No Immunizations Fluarix [id number] (PF) 45 mcg (15 mcg x 3)/0.5 mL IM syringe Performing Provider: BERNIE Guadarrama Performing [place] [facility] Administered by: Fang Cavazos MA on 05/25/25 14:19 Dose Route Admin Location Dispensed Lot Number Expiration Date NDC Diploma Medical Assistant 0.5 mL IM Left Deltoid 0.5 mL [id number] 12/08/25 [id number] [place] VIS Given Date VIS Provided VIS Publication Date 05/25/25 Single Vaccine 24 Eligibility Eligibility Date Funding Source Not [facility] Eligible 05/25/25 Private Coding Level of Care Code Est Pt Level 3 (58431) Diagnoses Insomnia G47.00 Systolic murmur R01.1 HTN (hypertension) I10 Assessment & Plan Assessment & Plan (1) Insomnia: Code(s): G47.00 - Insomnia, unspecified Category: Medical (2) Systolic murmur: Code(s): R01.1 - Cardiac murmur, unspecified Category: Medical (3) HTN (hypertension): Code(s): I10 - Essential (primary) hypertension Category: Medical Plan . Orders: Orders Vitamin B6 Today G47.00 - Insomnia, unspecified Vitamin B1 Today G47.00 - Insomnia, unspecified CA echo transthoracic complete Today R01.1 - Cardiac murmur, unspecified Influenza [id number] Immunization Today Z23 - Encounter for immunization Vitamin B12 and Folate Today G47.00 - Insomnia, unspecified Vitamin B2 (Riboflavin) Today G47.00 - Insomnia, unspecified Ferritin Today G47.00 - Insomnia, unspecified IRON PROFILE Today G47.00 - Insomnia, unspecified
[2025-05-25 14:05] VITALS: BP 148/90; PULSE 57; RESP 16; O2SAT 98; BMI 26.3
--- OUTSIDE RECORDS SUMMARY | 2025-05-25 20:21 | XMS_ITS | Data Portability ---
Author Organization [place] [facility], Allergy Address [address] [address] Care Team Providers Care Stranding Supervisor Name Role Phone THALIA RUSSO Referring Provider [phone] Assessment No assessment recorded. Plan of Treatment Reminders Order Date Submit Date Provider Last Modified By Organization Details Last Modified Time Details Appointments None record ed. Lab None record ed. Referral None record ed. Procedures None record ed. Surgeries None record ed. Imaging None record ed. Medication Orders None record ed. Patient TargetsNo targets recorded. Patient InstructionsNo instructions recorded. Reason for Referral None Reported. Results Created Date Observation Date Name Description Value Unit Range Abnormal Flag Note LastModifiedBy Organization Detail LastModifiedTime 05/27/20 audio gram No observ ation record ed. BARCODE Not Available 2023 09:08:51 Result Notes None recorded. Problems Name Problem SNOMED Code Status Onset Date Resolution Date Notes Provider Name and Address Organization Details Recorded Time Bilateral disorder of Eustachia n tubes 77918433488 08044 Active 2018 Other specified disorders of Eustachia n tube, bilateral ; Note: Date Diagnosed : 10/02/2018 5:10 PM (H69.83) Not Available [facility] 4 02:54:07 Abnormal auditory perceptio n 54673732 Active 2018 Other abnormal auditory perceptio ns, right ear; Note: Date Diagnosed : 10/02/2018 3:50 PM (H93.291) Not Available [facility] 4 02:54:08 Dizziness and giddiness 072269560 Active 2018 Dizziness and giddiness ; Note: Date Diagnosed : 10/02/2018 5:11 PM (R42) Not Available [facility] 4 02:54:08 Headache 14837290 Active 2018 Facial pain NOS; Note: Date Diagnosed : 10/02/2018 5:10 PM (R51) Not Available [facility] 4 02:54:04 Chronic pansinusi tis 54933346 Active 2023 ASTER SHEIKH MD [address] [facility],[place] [address], [place], [address] , [facility] - [facility] 4 16:03:43 Problem Notes None recorded. Procedures Surgical History Date Name Laterality Status Provider Name and Address Organization Details Recorded Time 05/26/2024 NasalEndosc opy_DP completed ASTER SHEIKH MD [address] [place] [address],[place] [address], [place], [address], [facility] - [facility] 05/26/2024 15:56:07 05/26/2024 Air & Speech Audio with Tymps - 32132, 75744 & 16168 completed SYMONE MADDEN [address] [facility],[place] [address], [place], [address], [facility] - [facility] 05/26/2024 14:49:37 Imaging Results None recorded. Procedure Notes None recorded. Medical Equipment None Reported. Medications Name Sig Start Date Stop Date Status Note LastModified by Organization Details LastModified Time losartan 50 mg tablet TAKE 1 TABLET BY MOUTH EVERY DAY active Not Available Not Available No t Available trazodone 50 mg tablet TAKE 1 TABLET BY MOUTH AT BEDTIME NEEDED FOR SLEEP FOR 90 DAYS active Not Available Not Available No t Available azithromycin 250 mg tablet TAKE 2 TABLETS BY MOUTH TODAY, THEN TAKE 1 TABLET DAILY FOR 4 DAYS DIRECTED active Not Available Not Available No t Available prednisone 20 mg tablet TAKE 3 TABLETS (60 MG) BY MOUTH ONCE DAILY active Not Available Not Available No t Available cephalexin 500 mg capsule TAKE 1 CAPSULE BY MOUTH 3 TIMES A DAY FOR 8 DAYS active Not Available Not Available N ot Available epinephrine 0.3 mg/0.3 mL injection, auto-injecto r INJECT 0.3 MG (0.3 ML) INTRAMUSCUL MARK EVERY 4 HOURS NEEDED FOR ANAPHYLAXIS active Not Available Not Available Not Available amoxicillin 875 mg-potassium clavulanate 125 mg tablet TAKE 1 TABLET BY MOUTH TWICE A DAY FOR 10 DAYS active Not Available Not Available No t Available Vitals Date Recorded Body height Body mass index (BMI) Body weight Provider Name and Address Organization Details Last Updated DateTime 05/26/2024 177.8 cm 24.4 kg/m2 13016.7 g Carissa Daley [place] [facility] 05/26/2024 15:42:37 Social History None recorded. Functional Status None recorded. Mental Status None recorded. Family History Nothing Reported. Medical History No medical history recorded. Gynecological HistoryNo gynecological history recorded. Obstetrics History GPAL:G 0 P 0 0 0 0 Past Encounters Encounter ID Performer Location Encounter Start Date Encounter Closed Date Diagnosis/Indication Diagnosis SNOMED-CT Code Diagnosis ICD10 Code Diagnosis IMO Codes Diagnosis Note [id number] ASTER SHEIKH MD [facility] [address] [address] 05/26/2024 14:36:00 05/26/2024 16:45:10 Abnormal auditory perception [id number] H93.299 Audiologic al evaluation results: Right ear: Normal auditory thresholds with excellent speech discrimina tion. Left ear: Normal auditory thresholds with excellent speech discrimina tion. Tympanomet ry: Right Ear:Type As Left Ear:Type As Bilateral disorder of Eustachian tubes 8243487064 027816 H69.93 Exam and audio were normal. I discussed autoinsuff lation and trying flonase. Her sx are improved compared to before. I recommend observatio n for now. Chronic pansinusitis [id number] 86264 J32.4 No purulence or polyps on nasal endo. I recommend observatio n since the smell of infection has improved. Health Concerns Section Related Observation LastModified by Organization Detai ls LastModified Time None Recorded Concern Status LastModified by Organization Details LastModified Time None Recorded Advance Directives Directive None Recorded Payers Insurance Date Sequence Insurance Name Policy Number Policy Davis Covered Member ID Davis Member ID Guarantor Name 05/26/2024 1 [facility] - [facility]ALTH NET PLAN (MEDICAID HMO) MARTHA Boudreaux [id number] Aditi Boudreaux Notes Date Note Type Note Provider Name and Address Organization Details Recorded Time 05/26/2024 text/html ROS as noted in the HPI She reports a history of popping in her left ear. It was worse until the weather got colder and now it is better. She has had an intermittent smell in her left nasal cavity that smells like an infection . It used to happen more frequently. No trouble with her hearing. In general her sense of smell is ok. She does not use any nasal spray or allergy medication. ASTER SHEIKH MD [address] [place] [address], [place], [phone], [facility] - [facility] 05/26/2024 16:04:26 OBGyn Episode No OBEpisode recorded.
--- OUTSIDE RECORDS SUMMARY | 2025-05-25 20:21 | XMS_ITS | Patient Health Record ---
Author Organization [facility] Address [address] [place] [address] Care Team Providers Care Dice Maker Name Role Phone Teena LANDIS, Paulina Primary Care Provider U vernonlorena Jonathan Rodriguez Unavailable [phone] Reason For Referral No Information Medications Medication SIG (Take, Route, Frequency, Duration) Notes Start Date End Date Status Suprep Bowel Prep (17.5g/3.13g/1.6) per 6 ounces Solution as directed Orally once; Duration: 1 dose 06/13/2012 Active hydroCHLOROthiazide Active Social History Social History Additional Details Category Social Info Options Details Miscellaneous: Marital status: Occupation: unemployed Section Notes: Nonsmoker; no sig. alcohol Problems Problem Type SNOMED Code ICD Code Onset Dates Problem Status W/U Status Risk Notes Problem Constipation (38135772) Constipation (564.00) Active confirmed Problem Colon cancer screening (932482975) Colon cancer screening (V76.51) Active confirmed Plan Of Treatment Future Test Test Name Order Date COLONOSCOPY 06/13/2012 Insurance Providers Payer Name Payer Address Payer Phone Subscriber Number Group Number Insured Name Patient Relationship to Insured Coverage Start Date Coverage End Date [facility] [address] [place] [address] [id number] JAQUAN OCONNELL Self - patient is the insured Medical (General) History Medical History History ICD Code hypertension Denies [place],DM,CVA,Lung disease,renal dise ase
--- OUTSIDE RECORDS SUMMARY | 2025-05-25 20:21 | XMS_ITS | Clinical Summary ---
Author Organization [address] Address [address] [place] [id number] Phone Care Team Providers Care Handle And Vent Machine Operator Name Role Phone Jeimy France MD Primary Care Provider [phone] Surgical History Surgery Date Site/Laterality Comments BREAST [...] Sexual Orientation Not on file Obstetrics History Para Term AB IAB SAB Ectopic Multiple Livin g Live Births 3 3 3 3 Date Outcome GA Total Labor Labor/2nd/3rd Weight Sex Type Anes PTL Argenis A1 A5 Name Clin Term Term Term Last Filed Vital Signs Vital Sign Reading Time Taken Comments Blood Pressure - - Pulse - - Temperature - - Respiratory Rate - - Oxygen Saturation - - Inhaled Oxygen Concentration - - Weight 77.1 kg (170 lb) 09/15/2021 1:14 PM EDT Height 177.8 cm (5' 10 ) 09/15/2021 1:14 PM EDT Body Mass Index 24.39 09/15/2021 1:14 PM EDT Plan of Treatment Health Maintenance Due Date Last Done Comments Colorectal Cancer Screening: Colonoscopy 1961 Cervical Cancer Screening: Pap Smear 1982 Pneumococcal Vaccine: 50+ Years (1 of 1 - PCV) 2011 HIV Screening 05/20/2022 Hepatitis C Screening 05/20/2022 Social Influencers of Health Screening 05/20/2022 Depression Screening 06/11/2024 COVID-19 Vaccine (4 - season) 2025 06/06/2021, 09/30/2020, 09/08/2020 Influenza Vaccine (#1) 2025 , 04/16/2023, 04/06/2022, Additional history exists DTaP,Tdap,and Td Vaccines (2 - Td or Tdap) 10/04/2025 10/05/2015 Breast Cancer Screening 12/05/2026 12/06/19 25, 09/17/2023, 09/17/2023, Additional history exists RSV Immunization Adult Patients (1 - 1-dose 75+ series) 2036 Zoster Vaccines Completed 09/04/2023, 03/13/2023 HIB Vaccines Aged Out No longer eligi [...] Procedure Name Priority Date/Time Associated Diagnosis Comments MG MAMMO DIGITAL SCREENING W [place] BILAT Routine 12/05/2024 9:04 AM EDT Encounter for screening mammogram for breast cancer from Last 3 Months or Most Recently Relevant to Health Maintenance Results * MG Mammo Digital Screening w [place] bilat (12/05/2024 9:04 AM EDT) Anatomical Region Laterality Modality Breast Bilateral Mammography 12/05/2024 2:49 PM EDT Impressions 12/05/2024 2:53 PM EDT No mammographic evidence for malignancy. BI-RADS CATEGORY: 1 - NEGATIVE RECOMMENDATION: Screening bilateral mammogram is recommended in 1 year. Mammo Location: [facility], [address] [place] [address], [id number], . -------- FINAL REPORT -------- Dictated By: Beba Drake Dictated Date: 12/05/2024 14:49 ET Assigned Physician: Beba Drake Reviewed and Electronically Signed By: Beba Drake Signed Date: 12/05/2024 14:53 ET Workstation ID: [id number] Transcribed By: Self Edit Transcribed Date: 12/05/2024 14:49 ET Narrative 12/05/2024 2:53 PM EDT Bilateral screening mammogram. CLINICAL: 64 years old, Female, routine annual exam. COMPARISON: Prior studies, latest 09/17/2023. TECHNIQUE: Bilateral MLO and CC views were obtained digitally with 2-D C views and 3-D mammogram (digital breast tomosynthesis). Computer-aided detection was utilized in evaluation of this exam (CAD). FINDINGS: There is no evidence of suspicious mass or architectural distortion. No worrisome calcifications are evident. There has been no significant change from prior exam(s). BREAST DENSITY: B - There are scattered areas of fibroglandular density. Procedure Note Beba Drake MD - 12/05/2024 Bilateral screening mammogram. CLINICAL: 64 years old, Female, routine annual exam. COMPARISON: Prior studies, latest 09/17/2023. TECHNIQUE: Bilateral MLO and CC views were obtained digitally with 2-D Cviews and 3-D mammogram (digital breast tomosynthesis). Computer-aideddetection was utilized in evaluation of this exam (CAD). FINDINGS: There is no evidence of suspicious mass or architectural distortion. Noworrisome calcifications are evident. There has been no significantchange from prior exam(s). BREAST DENSITY: B - There are scattered areas of fibroglandular density. IMPRESSION: No mammographic evidence for malignancy. BI-RADS CATEGORY: 1 - NEGATIVE RECOMMENDATION: Screening bilateral mammogram is recommended in 1 year. Mammo Location: [facility], [address] [place] [address], [id number], . -------- FINAL REPORT -------- Dictated By: Beba Drake Dictated Date: 12/05/2024 14:49 ET Assigned Physician: Beba Drake Reviewed and Electronically Signed By: Beba Drake Signed Date: 12/05/2024 14:53 ET Workstation ID: [id number] Transcribed By: Self Edit Transcribed Date: 12/05/2024 14:49 ET Jeimy France MD IMG BI PROCEDURES Final Result from Last 3 Months or Most Recently Relevant to Health Maintenance Insurance [facility] [place] [phone] Care Teams Handle And Vent Machine Operator Relationship Specialty Start Date End Date Jeimy France MD [address] [place] [address] PCP - General Internal Medicine 05/22/16
== END 2025-05-25 15:01 | disposition home or self-care (01) ==
LOC: HO.HMCC 13:58
PROVIDERS: PCP Nurse Practitioner Family; Visit Provider Nurse Practitioner Family
DX: G47.00 Insomnia, unspecified (principal); R01.1 Cardiac murmur, unspecified; I10 Essential (primary) hypertension; Z23 Encounter for immunization

== ENCOUNTER → 2025-05-25 13:57 | Outpatient (BNVA) | payer OTHER, SELFPAY | PROVIDERS: PCP Nurse Practitioner Family; Visit Provider Nurse Practitioner Family | DX: Z23 Encounter for immunization (principal); I10 Essential (primary) hypertension; G47.00 Insomnia, unspecified; R01.1 Cardiac murmur, unspecified | CPT/HCPCS: 90471; 90656; 99212 ==